=== PATIENT | female | born 1930 | race Caucasian/White ===

== ENCOUNTER 2018-02-03 15:39 | Inpatient (IN) | payer MEDICARE ==
[2018-02-03 17:02] LABS: Hemoglobin 14.8 g/dL (12.0-16.0); Mean Corpuscular Hemoglobin 28.5 pg (27.0-31.0); Mean Corpuscular Volume 81.4 fL (78.0-98.0); Platelet Count 220 thou/uL (130-400); RBC Distribution Width 13.4 % (11.5-14.5); Red Blood Cell (RBC) Count 5.18 mill/uL (4.20-5.40)
[2018-02-03 17:24] LABS: ALT (SGPT) 24 U/L (8-55); AST (SGOT) 31 U/L (5-34); Albumin 4.4 g/dL (3.4-4.8); Alkaline Phosphatase 90 U/L (40-150); Anion Gap 15 mmol/L (10-20); BUN (Urea Nitrogen) 15 mg/dL (9.8-20.1); Bilirubin, Total 0.6 mg/dL (0.2-1.2); Calc. Creatinine Clearance 0 mL/min (70-130); Calcium 9.1 mg/dL (7.8-10.44); Carbon Dioxide 22 mmol/L (23-31); Chloride 86 mmol/L (98-107); Estimated GFR-MDRD 58; Globulin 3.6 g/dL (2.4-3.5); Glucose 110 mg/dL (83-110); Potassium 4.4 mmol/L (3.5-5.1)
[2018-02-03 17:25] LABS: Band 7 % (5-11); Lymphocytes 11 % (21-51); MDiff Complete? YES; Metamyelocyte 1 % (0-0); Monocytes 15 % (0-10); Neutrophil 66 % (42-75); PLT Morphology Comment Appears Adequate; RBC Morphology Normal
[2018-02-03 17:31] LABS: Sodium 119 mmol/L (136-145)
[2018-02-03] MEDS ORDERED: Bisacodyl 5 MG TAB PO PRN (22:26)
[2018-02-03] MEDS ORDERED: Acetaminophen 325 MG TAB PO PRN (22:26)
[2018-02-03] MEDS ORDERED: Mag-Al 1200 mg/1200 mg/30 ML UDCUP PO PRN (22:26)
[2018-02-03] MEDS ORDERED: Senokot 8.6 MG TAB PO PRN (22:26)
[2018-02-03] MEDS ORDERED: hydrALAZINE 20 MG/ML VIAL SLOW IVP PRN (22:26)
[2018-02-03 23:12] LABS: Anion Gap 15 mmol/L (10-20); BUN (Urea Nitrogen) 12 mg/dL (9.8-20.1); Calc. Creatinine Clearance 45 mL/min (70-130); Calcium 8.7 mg/dL (7.8-10.44); Carbon Dioxide 20 mmol/L (23-31); Chloride 92 mmol/L (98-107); Estimated GFR-MDRD 71; Glucose 130 mg/dL (83-110); Potassium 3.6 mmol/L (3.5-5.1); Sodium 123 mmol/L (136-145)
[2018-02-04] MEDS: Sodium Chloride 0.9% 1,000 ML IV SCH ×2 (01:02→15:51)
[2018-02-04 06:05] LABS: Anion Gap 9 mmol/L (10-20); BUN (Urea Nitrogen) 10 mg/dL (9.8-20.1); Calc. Creatinine Clearance 52 mL/min (70-130); Calcium 8.5 mg/dL (7.8-10.44); Carbon Dioxide 22 mmol/L (23-31); Chloride 95 mmol/L (98-107); Estimated GFR-MDRD 83; Glucose 95 mg/dL (83-110); Potassium 3.5 mmol/L (3.5-5.1); Sodium 122 mmol/L (136-145)
[2018-02-04] MEDS ORDERED: Non-Formulary Item 1 EACH (Biotin [Biotin] 5,000 MCG) PO SCH (09:00)
[2018-02-04] MEDS: Clopidogrel Bisulfate 75 MG TAB PO SCH (09:15)
[2018-02-04] MEDS: Aspirin 81 mg Enteric Coated Tablet PO SCH (09:15)
[2018-02-04] MEDS: Metoprolol Tartrate 50 MG TAB PO SCH ×2 (09:15→15:51)
[2018-02-04] MEDS: Amlodipine 5 MG TAB PO SCH (09:15)
[2018-02-04] MEDS: Enoxaparin Sodium 30 MG/0.3 ML SYRINGE SC SCH (09:15)
[2018-02-04] MEDS: hydrALAZINE 25 MG TAB PO SCH ×2 (09:15→15:50)
[2018-02-04] MEDS: Atorvastatin Calcium 20 MG TAB PO SCH (09:15)
--- NOTE | 2018-02-04 10:30 | PDOC.EVN ---
Event Note - Event Note Event Note: h&p [id number]
[2018-02-04 10:53] LABS: Anion Gap 10 mmol/L (10-20); BUN (Urea Nitrogen) 9 mg/dL (9.8-20.1); Calc. Creatinine Clearance 45 mL/min (70-130); Calcium 8.5 mg/dL (7.8-10.44); Carbon Dioxide 23 mmol/L (23-31); Chloride 94 mmol/L (98-107); Estimated GFR-MDRD 72; Glucose 142 mg/dL (83-110); Potassium 3.4 mmol/L (3.5-5.1); Sodium 124 mmol/L (136-145)
--- NOTE | 2018-02-04 10:55 | HP ---
CHIEF COMPLAINT: Diarrhea and weakness. HISTORY OF PRESENT ILLNESS: This is an 87-year-old female with a history of breast cancer, coronary artery disease, hypertension, hyperlipidemia, and hypercholesterolemia who presents with a chief comp laint of diarrhea for the last 3 weeks and generalized weakness. The patient was also observed by a family friend to have had some dyspnea with exertion, more so than usual. The patient did go see her outpatient electrical worker and had an outpatient serological panel completed and was subsequently told to present to the emergency department. In the emergency department, the patient was found to have a sodium of 118. At the time of my evalua tion, the patient still endorses feeling generalized weakness, but otherwise feels "okay." REVIEW OF SYSTEMS: As per HPI. CONSTITUTIONAL: No significant weight gain or loss. No fevers or chills. HEENT: Denies any new headaches, lightheadedness, dizziness or vision changes. CARDIOVASCULAR: Denies any chest pain, chest pressure. Does have some shortness of breath with exer tion at baseline. A family friend feels that this is subjectively worse than typical. No palpitatio ns. RESPIRATORY: See discussion above regarding shortness of breath, particularly with exertion. Otherw ise, no cough, congestion. GASTROINTESTINAL: No nausea, no vomiting, a retained appetite. No abdominal pain. The patient has been having on and off diarrhea for the last 2-3 weeks that is watery and brown. MUSCULOSKELETAL: No new myalgias or arthralgias, just generalized fatigue. SKIN: No new rashes or lymphadenopathy. Review of systems otherwise negative. PAST MEDICAL HISTORY: 1. As per HPI, notable for congestive heart failure, unknown ejection fraction 2. Coronary artery disease. 3. Breast cancer. 4. Hypertension. 5. Hyperlipidemia. 6. Status post right hip surgery. 7. Status post mastectomy HOME MEDICATIONS: Please see EMR for full details. MEDICATIONS: Hydralazine 25 mg p.o. b.i.d., metoprolol 50 mg p.o. b.i.d., amlodipine 5 mg p.o. daily , olmesartan 20 mg p.o. b.i.d., clopidogrel 75 mg p.o. daily, Biotin 5000 mcg p.o. daily, aspirin 81 mg p.o. daily, Atorvastatin 20 mg p.o. daily. The patient notes that because her brand of valsartan underwent a recall so she was changed over to o lmesartan approximately a month ago by her electrical worker. ALLERGIES: Patient has allergy to MEPERIDINE, unknown severity of reaction. FAMILY HISTORY: The patient denies any known family history of electrolyte abnormality, renal diseas e. The patient does endorse a family history of some cardiovascular disease. SOCIAL HISTORY: The patient denies any alcohol, tobacco or illicit drug use. She is accompanied her e today by a close family friend. CODE STATUS: Her son lives out of state, however, is very involved in her care and would be designat ed as her medical decision maker, along with the family friend at bedside if the patient is unable to make her own medical decisions. At this point in time, the patient wishes to be FULL CODE. PHYSICAL EXAMINATION: GENERAL: The patient is awake, alert, appropriate, conversant, sitting in hospital bed in no acute d istress. HEENT: Slightly dry mucous membranes. Equal ocular motions are intact. Normocephalic, atraumatic. CARDIOVASCULAR: S1, S2. No murmurs, rubs or gallops. Pulses 2+ bilateral upper extremity, no pitti ng pedal edema. RESPIRATORY: Reasonable air movement. No conversational dyspnea. LUNGS: Clear to auscultation bilaterally. No wheezes, rales or rhonchi. ABDOMEN: Positive bowel sounds, soft, nontender to palpation. MUSCULOSKELETAL: Moving all 4 extremities independently and able to self-reposition in the bed witho ut difficulty or assistance. LABORATORY AND IMAGING: CBC: WBC 7.0, hemoglobin 14.8, hematocrit 42.1, platelets 220. BMP: Sodiu m 119, potassium 4.4, chloride 86, bicarbonate 22, BUN 15, creatinine 0.91, glucose 110, calcium 9.1, total bilirubin 0.6, AST 31, ALT 24, alkaline phosphatase 90. B-natriuretic peptide 398, total prot ein 8.0, albumin 4.4. ASSESSMENT AND PLAN: An 87-year-old female who presents with complaint of a low sodium and diarrhea. 1. Hyponatremia. The patient has been placed on normal saline. Suspect possibly diarrhea is the cu lprit. We will continue to closely monitor with serial BMP. I appreciate Nephrology consultation fo r aid with further management of her hyponatremia as needed. 2. Diarrhea. The patient currently is not actively having any diarrhea. We will continue to closel y monitor. If the patient has any further recurrent diarrhea, could consider stool testing. Suspect that at the very least the patient would benefit from an outpatient gastroenterology consultation. 3. Hypertension, stable. 4. Hyperlipidemia, stable. 5. Coronary artery disease, stable. 6. History of congestive heart failure with an unknown EF. At this point in time, we will still con tinue with IV fluid administration cautiously. I have discussed with the patient that olmesartan may not likely be the precipitating etiology of her hyponatremia, but we will continue to closely monito r. 7. Diet: Cardiac. 8. Activity: As tolerated. 9. Deep venous thrombosis prophylaxis with Lovenox.
--- NOTE | 2018-02-04 12:53 | CON ---
DATE OF CONSULTATION: 02/04/2018 CONSULTING PHYSICIAN: Dr. Domínguez. REASON FOR CONSULT: Hyponatremia. REASON FOR ADMISSION: . HISTORY OF PRESENT ILLNESS: This is an 87-year-old elderly white female with history of coronary art zuly disease and hyperlipidemia, who came to the hospital with above complaints and Nephrology is cons ult for hyponatremia. The patient's sodium was found to be 119 on admission and currently is 122-123 after IV fluids. Patient denies any complaints. She was having her breakfast. No chest pain or sh ortness of breath reported. PAST MEDICAL HISTORY: Positive for coronary artery disease, hyperlipidemia, hypertension. PAST SURGICAL HISTORY: Right hip surgery and mastectomy. HOME MEDICATIONS: Hydralazine, metoprolol, Plavix, amlodipine, atorvastatin. ALLERGIES: MEPERIDINE. SOCIAL HISTORY: No smoking, alcohol, or illicit drug abuse. FAMILY HISTORY: Nothing significant. REVIEW OF SYSTEMS: The following complete review of systems was negative, unless otherwise mentioned in the HPI or below: Constitutional: Weight loss or gain, ability to conduct usual activities. Sk in: Rash, itching. Eyes: Double vision, pain. ENT/Mouth: Nose bleeding, neck stiffness, pain, te nderness. Cardiovascular: Palpitations, dyspnea on exertion, orthopnea. Respiratory: Shortness of breath, wheezing, cough, hemoptysis, fever, or night sweats. Gastrointestinal: Poor appetite, abdo hailey pain, heartburn, nausea, vomiting, constipation, or diarrhea. Genitourinary: Urgency, frequen cy, dysuria, nocturia. Musculoskeletal: Pain, swelling. Neurologic/Psychiatric: Anxiety, depressi on. Allergy/Immunologic: Skin rash, bleeding tendency. PHYSICAL EXAMINATION: GENERAL: This is a thin-built female in no apparent distress. VITAL SIGNS: Temperature 98.3, pulse 95, respiratory rate 20, and blood pressure 150/68. LABORATORY DATA: Sodium is 132, potassium is 3.5, BUN is 10, creatinine 0.67. ASSESSMENT AND PLAN: 1. Hyponatremia, most likely volume depletion. We will start on IV fluids, monitor sodium closely. 2. Hyponatremia. 3. Metabolic acidosis. 4. Edema, controlled. 5. Hypertension, stable. 6. Plan is to continue IV fluids and monitor sodium closely.
[2018-02-04 17:01] LABS: Anion Gap 11 mmol/L (10-20); BUN (Urea Nitrogen) 13 mg/dL (9.8-20.1); Calc. Creatinine Clearance 48 mL/min (70-130); Carbon Dioxide 19 mmol/L (23-31); Chloride 94 mmol/L (98-107); Estimated GFR-MDRD 79; Glucose 91 mg/dL (83-110); Potassium 3.9 mmol/L (3.5-5.1); Sodium 120 mmol/L (136-145)
--- NOTE | 2018-02-04 21:27 | PDOC.PN ---
- Subjective Encounter Start Date: 02/04/18 Encounter Start Time: 18:00 Subjective: nsg notes rev, [place] ovn, eating dinner and no new c/o -: family friend at bedside, son on speakerphone - Objective Resuscitation Status: Resuscitation Status FULL:Full Resuscitation Vital Signs & Weight: Vital Signs (12 hours) Temp Pulse Pulse Pulse Resp BP BP 02/04/18 19:30 98 F 78 16 02/04/18 16:08 98.0 F 75 16 02/04/18 15:50 87 02/04/18 12:10 98.2 F 87 18 02/04/18 11:14 75 75 131/74 156/65 H BP Pulse Ox Pulse Ox Pulse Ox 02/04/18 19:30 128/61 93 L 02/04/18 16:08 138/90 97 02/04/18 15:50 02/04/18 12:10 135/61 100 02/04/18 11:14 99 90 L Weight Weight 121 lb 9.6 oz Result Diagrams: 02/03/18 16:33 02/05/18 04:48 Phys Exam - Physical Examination Constitutional: NAD seated in hospital bed HEENT: PERRLA, moist MMs Respiratory: no wheezing, no rales, no rhonchi, clear to auscultation bilateral Cardiovascular: RRR, no significant murmur, no rub Gastrointestinal: soft, non-tender, no distention, positive bowel sounds Musculoskeletal: no edema, pulses present Neurological: moves all 4 limbs Dx/Plan - Plan cont current plan of care 1. Hyponatremia. The patient has been placed on normal saline. Suspect possibly diarrhea is the culprit. We will continue to closely monitor with serial BMP. apprec nephrology c/s 2. Diarrhea. The patient currently is not actively having any diarrhea. We will continue to closely monitor. check c diff, stool cx family inquired about probiotics - ok to trial may need outpt GI eval 3. Hypertension, stable. 4. Hyperlipidemia, stable. 5. Coronary artery disease, stable. 6. History of congestive heart failure with an unknown EF. At this point in time, we will still continue with IV fluid administration cautiously. 7. Diet: Cardiac. 8. Activity: As tolerated. 9. Deep venous thrombosis prophylaxis with Lovenox. d/w pt and her family friend and son on speakerphone d/w bedside nsg Review of Systems - Medications/Allergies Allergies/Adverse Reactions: Allergies Allergy/AdvReac Type Severity Reaction Status Date / Time meperidine [From Demerol] Allergy Verified 02/03/18 20:03 Medications: Current Medications Acetaminophen (Tylenol) 650 mg PO Q4H PRN PRN Reason: Headache/Fever or Mild Pain Al Hydroxide/Mg Hydroxide (Maalox) 15 ml PO Q4H PRN PRN Reason: Heartburn or Indigestion Amlodipine Besylate (Norvasc) 5 mg PO DAILY [facility] Last Admin: 02/05/18 08:42 Dose: 5 mg Aspirin (Ecotrin) 81 mg PO DAILY [facility] Last Admin: 02/05/18 08:41 Dose: 81 mg Atorvastatin Calcium (Lipitor) 20 mg PO DAILY [facility] Last Admin: 02/05/18 08:42 Dose: 20 mg Bisacodyl (Dulcolax) 10 mg PO DAILYPRN PRN PRN Reason: Constipation Clopidogrel Bisulfate (Plavix) 75 mg PO DAILY [facility] Last Admin: 02/05/18 08:41 Dose: 75 mg Enoxaparin Sodium (Lovenox) 30 mg SC 09 [facility] Last Admin: 02/05/18 08:47 Dose: 30 mg Hydralazine HCl (Apresoline) 10 mg SLOW IVP Q4H PRN PRN Reason: Systolic BP > 180 Hydralazine HCl (Apresoline) 25 mg PO BID-[facility] Last Admin: 02/05/18 08:42 Dose: 25 mg Sodium Chloride (Normal Saline 0.9%) 1,000 mls @ 125 mls/hr IV .Q8H [facility] Metoprolol Tartrate (Lopressor) 50 mg PO BID-[facility] Last Admin: 02/05/18 08:42 Dose: 50 mg Potassium Chloride (K-Dur) 40 meq PO 0900 [facility] Stop: 02/05/18 12:00 Senna (Senokot) 2 tab PO HSPRN PRN PRN Reason: Constipation
[2018-02-04 22:36] LABS: Osmolality, Urine 347 mOsm/kg (300-900)
[2018-02-04 22:44] LABS: Anion Gap 9 mmol/L (10-20); BUN (Urea Nitrogen) 12 mg/dL (9.8-20.1); Calc. Creatinine Clearance 48 mL/min (70-130); Calcium 8.2 mg/dL (7.8-10.44); Carbon Dioxide 22 mmol/L (23-31); Chloride 96 mmol/L (98-107); Estimated GFR-MDRD 79; Potassium 3.9 mmol/L (3.5-5.1); Sodium 123 mmol/L (136-145)
[2018-02-04 22:48] LABS: Glucose 86 mg/dL (83-110)
[2018-02-04 22:50] LABS: Sodium, Urine 75 mmol/L (Not Available)
[2018-02-05] MEDS: Sodium Chloride 0.9% 1,000 ML IV SCH ×3 (04:36→18:16)
[2018-02-05 05:35] LABS: Anion Gap 10 mmol/L (10-20); BUN (Urea Nitrogen) 9 mg/dL (9.8-20.1); Calc. Creatinine Clearance 56 mL/min (70-130); Calcium 8.4 mg/dL (7.8-10.44); Carbon Dioxide 20 mmol/L (23-31); Chloride 95 mmol/L (98-107); Estimated GFR-MDRD Greater than 90; Glucose 88 mg/dL (83-110); Potassium 3.4 mmol/L (3.5-5.1); Sodium 122 mmol/L (136-145)
[2018-02-05 06:20] LABS: Thyroid Stimulating Hormone 1.12 uIU/mL (0.35-4.94)
[2018-02-05] MEDS: Clopidogrel Bisulfate 75 MG TAB PO SCH (08:41)
[2018-02-05] MEDS: Aspirin 81 mg Enteric Coated Tablet PO SCH (08:41)
[2018-02-05] MEDS: Amlodipine 5 MG TAB PO SCH (08:42)
[2018-02-05] MEDS: Atorvastatin Calcium 20 MG TAB PO SCH (08:42)
[2018-02-05] MEDS: hydrALAZINE 25 MG TAB PO SCH ×2 (08:42→17:53)
[2018-02-05] MEDS: Metoprolol Tartrate 50 MG TAB PO SCH ×2 (08:42→17:53)
[2018-02-05] MEDS: Enoxaparin Sodium 30 MG/0.3 ML SYRINGE SC SCH (08:47)
[2018-02-05] MEDS ORDERED: Potassium Chloride 20 MEQ TAB PO SCH (09:00)
--- NOTE | 2018-02-05 10:31 | PDOC.PN ---
- Subjective Encounter Start Date: 02/05/18 Encounter Start Time: 10:30 Subjective: nsg notes rev, [place] ovn, no new c/o, feels ok, family friend @ bedside -: still having "diarrhea" which is per nsg more accurately a large partially -: formed stool - not completely waterry diarrhea - Objective Resuscitation Status: Resuscitation Status FULL:Full Resuscitation Vital Signs & Weight: Vital Signs (12 hours) Temp Pulse Resp BP BP BP Pulse Ox 02/05/18 08:42 88 132/80 02/05/18 08:00 97.5 F L 88 18 132/80 92 L 02/05/18 04:00 98.3 F 92 16 172/74 H 96 Weight Weight 123 lb I&O: 02/04/18 02/05/18 02/06/18 06:59 06:59 06:59 Intake Total 900 Output Total 800 Balance 100 Result Diagrams: 02/03/18 16:33 02/05/18 09:45 Phys Exam - Physical Examination Constitutional: NAD lying in hospital bed HEENT: moist MMs eomi Respiratory: no wheezing, no rales, no rhonchi b/l LL atelectasis Cardiovascular: RRR, no significant murmur, no rub Gastrointestinal: soft, non-tender, positive bowel sounds Musculoskeletal: no edema, pulses present Neurological: moves all 4 limbs able to self reposition in bed Psychiatric: normal affect, A&O x 3 Dx/Plan - Plan 1. Hyponatremia. Initial improvement with plateauing - inc NS TSH, cortisol wnl continue to closely monitor with serial BMP. apprec nephrology c/s - d/w nephrology 2. Diarrhea. The patient currently is not actively having any diarrhea. We will continue to closely monitor. check stool wbc family inquired about probiotics - ok to trial may need outpt GI eval 3. Hypertension, labile resume home omelsartan QHS to help with BP control continue monitor, has PRN hydralazine IV 4. Hyperlipidemia, stable. 5. Coronary artery disease, stable. Hx of CHF, sees Dr. Rowan design manager with [employer] - will try to obtain records on Mon from his office regarding EF pt does not have to fluid restrict or keep track of daily weights, suspect a reasonable EF monitor respiratory status in setting of IVF admin as per above 6. History of congestive heart failure with an unknown EF. At this point in time, we will still continue with IV fluid administration cautiously. 7. Diet: Cardiac. 8. Activity: As tolerated. Needs to be OOB and ambulating as much as tolerable. Start ICS 9. Deep venous thrombosis prophylaxis with Lovenox. d/w pt and her family friend d/w bedside nsg Greater than 30 min spent coordinating care and discussing plan of care with patient at bedside Review of Systems - Medications/Allergies Allergies/Adverse Reactions: Allergies Allergy/AdvReac Type Severity Reaction Status Date / Time meperidine [From Demerol] Allergy Verified 02/03/18 20:03 Medications: Current Medications Acetaminophen (Tylenol) 650 mg PO Q4H PRN PRN Reason: Headache/Fever or Mild Pain Al Hydroxide/Mg Hydroxide (Maalox) 15 ml PO Q4H PRN PRN Reason: Heartburn or Indigestion Amlodipine Besylate (Norvasc) 5 mg PO DAILY [facility] Last Admin: 02/05/18 08:42 Dose: 5 mg Aspirin (Ecotrin) 81 mg PO DAILY [facility] Last Admin: 02/05/18 08:41 Dose: 81 mg Atorvastatin Calcium (Lipitor) 20 mg PO DAILY [facility] Last Admin: 02/05/18 08:42 Dose: 20 mg Bisacodyl (Dulcolax) 10 mg PO DAILYPRN PRN PRN Reason: Constipation Clopidogrel Bisulfate (Plavix) 75 mg PO DAILY [facility] Last Admin: 02/05/18 08:41 Dose: 75 mg Enoxaparin Sodium (Lovenox) 30 mg SC 0900 [facility] Last Admin: 02/05/18 08:47 Dose: 30 mg Hydralazine HCl (Apresoline) 10 mg SLOW IVP Q4H PRN PRN Reason: Systolic BP > 180 Hydralazine HCl (Apresoline) 25 mg PO BID-[facility] Last Admin: 02/05/18 08:42 Dose: 25 mg Sodium Chloride (Normal Saline 0.9%) 1,000 mls @ 125 mls/hr IV .Q8H [facility] Metoprolol Tartrate (Lopressor) 50 mg PO BID-[facility] Last Admin: 02/05/18 08:42 Dose: 50 mg Olmesartan (Benicar) 20 mg PO BID [facility] Potassium Chloride (K-Dur) 40 meq PO 0900 [facility] Stop: 08/11/18 12:00 Saccharomyces Boulardii (Florastor) 250 mg PO DAILY [facility] Senna (Senokot) 2 tab PO HSPRN PRN PRN Reason: Constipation
[2018-02-05 10:32] LABS: Chloride 94 mmol/L (98-107); Potassium 3.2 mmol/L (3.5-5.1); Sodium 120 mmol/L (136-145)
[2018-02-05 10:33] LABS: Calcium 8.1 mg/dL (7.8-10.44); Glucose 180 mg/dL (83-110)
[2018-02-05 10:35] LABS: Anion Gap 11 mmol/L (10-20); Carbon Dioxide 18 mmol/L (23-31)
[2018-02-05 10:37] LABS: BUN (Urea Nitrogen) 8 mg/dL (9.8-20.1); Calc. Creatinine Clearance 49 mL/min (70-130); Estimated GFR-MDRD 79
[2018-02-05] MEDS ORDERED: Saccharomyces boulardii 250 MG CAP PO SCH (11:00)
--- NOTE | 2018-02-05 13:36 | PRG ---
DATE OF SERVICE: 02/05/2018 SUBJECTIVE: Patient was seen and examined at bedside and overnight events noted. Patient denies any shortness of breath or chest pain or palpitation. No history of nausea or vomiting or diarrhea or fever or chills or cramps. OBJECTIVE: GENERAL: This is a thin-built female in no apparent distress. VITAL SIGNS: Temperature 98.3, pulse , blood pressure . HEENT: Atraumatic, normocephalic. Oral mucosa is moist. NECK: Supple. CARDIOVASCULAR: S1 and S2 heard. Rate and rhythm regular. RESPIRATORY: Clear to auscultation. GASTROINTESTINAL: Abdomen is soft. MUSCULOSKELETAL: No tenderness. No edema. DERMATOLOGIC: No skin rash. NEUROLOGIC: Alert and awake and oriented x3. No focal neurologic deficits. Moving all the extremit ies. PSYCHIATRIC: Mood and affect normal. LABORATORY DATA: Sodium is 122. ASSESSMENT AND PLAN: 1. Hyponatremia with no significant improvement on IV fluids. The patient is still having diarrhea. We will increase IV fluids. Recheck labs in the evening. 2. Hypokalemia. Replace. 3. Metabolic acidosis, stable. 4. Edema, controlled. 5. Hypertension, stable. Increase IV fluids. Replete potassium and we will follow. We will check magnesium.
[2018-02-05 16:41] LABS: Anion Gap 9 mmol/L (10-20); BUN (Urea Nitrogen) 8 mg/dL (9.8-20.1); Calc. Creatinine Clearance 54 mL/min (70-130); Carbon Dioxide 19 mmol/L (23-31); Chloride 96 mmol/L (98-107); Estimated GFR-MDRD 88; Glucose 94 mg/dL (83-110); Sodium 120 mmol/L (136-145)
[2018-02-05] MEDS ORDERED: Tolvaptan 15 MG TAB PO SCH (18:00)
[2018-02-06 05:46] LABS: Anion Gap 10 mmol/L (10-20); BUN (Urea Nitrogen) 8 mg/dL (9.8-20.1); Calc. Creatinine Clearance 45 mL/min (70-130); Calcium 8.9 mg/dL (7.8-10.44); Carbon Dioxide 24 mmol/L (23-31); Chloride 100 mmol/L (98-107); Estimated GFR-MDRD 72; Glucose 89 mg/dL (83-110); Potassium 4.1 mmol/L (3.5-5.1); Sodium 130 mmol/L (136-145)
[2018-02-06] MEDS: Saccharomyces boulardii 250 MG CAP PO SCH (08:23)
[2018-02-06] MEDS: Amlodipine 5 MG TAB PO SCH (08:23)
[2018-02-06] MEDS: Atorvastatin Calcium 20 MG TAB PO SCH (08:24)
[2018-02-06] MEDS: Aspirin 81 mg Enteric Coated Tablet PO SCH (08:25)
[2018-02-06] MEDS: Clopidogrel Bisulfate 75 MG TAB PO SCH (08:25)
[2018-02-06] MEDS: Metoprolol Tartrate 50 MG TAB PO SCH ×2 (08:25→16:57)
[2018-02-06] MEDS: hydrALAZINE 25 MG TAB PO SCH ×2 (08:26→16:57)
[2018-02-06] MEDS: Enoxaparin Sodium 30 MG/0.3 ML SYRINGE SC SCH (08:37)
--- NOTE | 2018-02-06 14:39 | PRG ---
DATE OF SERVICE: 02/06/2018 SUBJECTIVE: Patient was seen and examined at bedside and overnight events noted. Patient denies any shortness of breath or chest pain or palpitation. No history of nausea or vomitin g or diarrhea or fever or chills or cramps. OBJECTIVE: GENERAL: This is a thin built female, in no apparent distress. VITAL SIGNS: Temperature 98.7, pulse 97, respiratory rate 18, blood pressure 124/66. HEENT: Atraumatic, normocephalic. Oral mucosa is moist. NECK: Supple. CARDIOVASCULAR: S1 and S2 heard. Rate and rhythm regular. RESPIRATORY: Clear to auscultation. GASTROINTESTINAL: Abdomen is soft. MUSCULOSKELETAL: No tenderness. No edema. DERMATOLOGIC: No skin rash. NEUROLOGIC: Alert and awake and oriented x3. No focal neurologic deficits. Moving all the extremit ies. PSYCHIATRIC: Mood and affect normal. LABORATORY DATA: Sodium is 130, potassium is 4.1, BUN 8, creatinine 0.7. ASSESSMENT AND PLAN: 1. Hyponatremia seems like SIADH getting better with vaptan and give one dose of tolvaptan. We will recheck labs at 4:00 p.m. today and continue monitoring the sodium. We will recheck a.m. labs too. 2. Edema, controlled. 3. hypokalemia, replace. 4. Hypertension, stable. 5. Metabolic acidosis, stable. 6. Monitor sodium, had one dose of vaptan, limit fluid intake. We will follow.
--- NOTE | 2018-02-06 16:17 | PDOC.PN ---
- Subjective Encounter Start Date: 02/06/18 Encounter Start Time: 16:05 Subjective: f/u for hyponatremia and diarrhea. Overall Na+ level improved -: and no diarrhea. Appetite improved. More energy and feeling better. - Objective Resuscitation Status: Resuscitation Status FULL:Full Resuscitation MAR Reviewed: Yes Vital Signs & Weight: Vital Signs (12 hours) Temp Pulse Resp BP BP Pulse Ox 02/06/18 11:30 97.7 F 57 L 18 117/54 L 96 02/06/18 08:26 97 124/66 02/06/18 08:23 97 124/66 02/06/18 08:00 97.9 F 97 20 124/66 93 L Weight Weight 116 lb 4 oz I&O: 02/05/18 02/06/18 02/07/18 06:59 06:59 06:59 Intake Total 900 2650 Output Total 800 1200 Balance 100 1450 Result Diagrams: 02/03/18 16:33 02/06/18 04:58 Additional Labs: Laboratory Tests 02/05/18 02/05/18 02/05/18 04:48 04:48 04:48 Sodium 122 L Potassium 3.4 L TSH 3rd Generation 1.1200 Cortisol 11.90 02/05/18 02/05/18 09:45 16:15 Sodium 120 L 120 L Potassium 3.2 L 4.0 TSH 3rd Generation Cortisol Phys Exam - Physical Examination Constitutional: NAD HEENT: PERRLA, sclera anicteric, oral pharynx no lesions Neck: no nodes, no JVD, supple, full ROM Respiratory: no wheezing, no rales, no rhonchi, clear to auscultation bilateral S1, S2 Cardiovascular: RRR, no significant murmur, no rub, gallop Gastrointestinal: soft, non-tender, no distention, positive bowel sounds Musculoskeletal: no edema, pulses present Neurological: non-focal, normal sensation, moves all 4 limbs Psychiatric: normal affect, A&O x 3 Skin: no rash, normal turgor, cap refill <2 seconds Dx/Plan (1) Hyponatremia Code(s): E87.1 - HYPO-OSMOLALITY AND HYPONATREMIA Status: Acute Comment: Likely SIADH, improving overall, serial Na+, fluid restriction (2) Diarrhea Code(s): R19.7 - DIARRHEA, UNSPECIFIED Status: Acute Comment: Resolving, supportive mgmt (3) Hypokalemia Code(s): E87.6 - HYPOKALEMIA Status: Acute Comment: Secondary to GI loss, resolving (4) HTN (hypertension) Code(s): I10 - ESSENTIAL (PRIMARY) HYPERTENSION Status: Chronic Qualifiers: Hypertension type: essential hypertension Qualified Code(s): I10 - Essential (primary) hypertension Comment: Continue current anti-hypertensive regimen, serial monitoring - Plan PT/OT, out of bed/ambulate, DVT proph w/SCDs Stable overall -: Continue fluid restriction -: Serial Na+ monitoring -: PT for mobilization -: AM lab: BMP * Likely home in am
[2018-02-06 21:26] VITALS: TEMP 97.8
[2018-02-07 05:37] LABS: Anion Gap 13 mmol/L (10-20); BUN (Urea Nitrogen) 18 mg/dL (9.8-20.1); Calc. Creatinine Clearance 36 mL/min (70-130); Carbon Dioxide 22 mmol/L (23-31); Chloride 101 mmol/L (98-107); Estimated GFR-MDRD 59; Potassium 3.9 mmol/L (3.5-5.1); Sodium 132 mmol/L (136-145)
[2018-02-07 05:38] LABS: Glucose 89 mg/dL (83-110)
[2018-02-07] MEDS: Atorvastatin Calcium 20 MG TAB PO SCH (09:01)
[2018-02-07] MEDS: Amlodipine 5 MG TAB PO SCH (09:01)
[2018-02-07] MEDS: Metoprolol Tartrate 50 MG TAB PO SCH (09:01)
[2018-02-07] MEDS: Aspirin 81 mg Enteric Coated Tablet PO SCH (09:01)
[2018-02-07] MEDS: Saccharomyces boulardii 250 MG CAP PO SCH (09:01)
[2018-02-07] MEDS: Clopidogrel Bisulfate 75 MG TAB PO SCH (09:01)
[2018-02-07] MEDS: Enoxaparin Sodium 30 MG/0.3 ML SYRINGE SC SCH (09:02)
[2018-02-07] MEDS: hydrALAZINE 25 MG TAB PO SCH (09:03)
[2018-02-07 11:12] VITALS: BP 155/80
--- NOTE | 2018-02-07 11:20 | DIS ---
DATE OF ADMISSION: 02/03/2018 DATE OF DISCHARGE: 02/07/2018 DISCHARGE DIAGNOSES: 1. Hyponatremia secondary to syndrome of inappropriate antidiuretic hormone, resolving. 2. Diarrhea, resolved. 3. Hypokalemia secondary to diarrhea, resolved. 4. Hypertension, stable. CONSULTATIONS: Dr. Bryan with Nephrology Service. PERTINENT LABORATORY AND X-RAY FINDINGS: Sodium ranged between 119-132. Potassium ranged between 3. 2-4.4. TSH 1.12. Serum cortisol level 11.9. BNP 398. CBC within normal limits. HOSPITAL COURSE: The patient was initially admitted after presenting with diarrhea and generalized w eakness as well as dyspnea on exertion. The patient underwent general evaluation including metabolic evaluation with initial sodium level noted at 119. The patient was initially placed on IV normal sa line with serial sodium monitoring. Consultation was obtained by the Nephrology Service with recomme ndations for eventual fluid restriction with overall slow improvement in sodium trend. The patient w as also noted with diarrhea at the time of admission; however, this had resolved by the date of disch arge. The patient did receive a dose of Samsca with overall improvement in sodium values with near n ormalization of the trend by the time of discharge. The patient overall remained clinically stable t hroughout the hospital course, tolerating regular oral intake. Vital signs remained stable and the p atient was noted afebrile throughout the hospital course. I have examined the patient at the time of discharge and discussed followup instructions, at which point the patient verbalizes understanding a nd agreement. The patient is overall clinically stable and ready for discharge on 02/07/2018. DISCHARGE MEDICATIONS: 1. Amlodipine 5 mg 1 tab p.o. daily. 2. Enteric coated aspirin 81 mg 1 tab p.o. daily. 3. Lipitor 20 mg p.o. daily. 4. Biotin 5000 mcg p.o. daily. 5. Plavix 75 mg p.o. daily. 6. Hydralazine 25 mg p.o. b.i.d. 7. Metoprolol tartrate 50 mg 1 tab p.o. b.i.d. 8. Olmesartan 20 mg p.o. b.i.d. FOLLOWUP: The patient will follow up with her primary care provider, Dr. John Bosch within 7 da ys of discharge. CONDITION ON DISCHARGE: Stable. ACTIVITY: Ad michael. DIET: Heart healthy. CODE STATUS: Full. DISPOSITION: Home, 02/07/2018. Total time preparing and coordinating discharge, 34 minutes.
== END 2018-02-07 14:58 | disposition home or self-care (01) | DRG 644 ==
LOC: ERS 15:39 → 2NO 19:26 → T4-A 02-05 07:31
PROVIDERS: ADMIT Internal Medicine; ATTEND Internal Medicine
DX: E22.2 Syndrome of inappropriate secretion of antidiuretic hormone (principal); E87.2 Acidosis; R19.7 Diarrhea, unspecified; E87.6 Hypokalemia; I25.10 Atherosclerotic heart disease of native coronary artery without angina pectoris; I50.9 Heart failure, unspecified; I11.0 Hypertensive heart disease with heart failure
CPT/HCPCS: 36415; 80048; 80053; 82533; 83735; 83880; 83930; 83935; 84300; 84443; 85025; 93005; 96360; G8978-GP-CI; G8979-GP-CI; G8980-GP-CI; J1650

== ENCOUNTER 2018-02-10 16:56 | Inpatient (IN) | payer MEDICARE ==
[~2018-02-10 16:56] MED LIST: Iopamidol 370 76% 100 ML VIAL ONE
--- NOTE | 2018-02-10 17:44 | RAD ---
FRONTAL VIEW CHEST: 02/10/18 COMPARISON: None. INDICATION: Weakness, short of breath and cough FINDINGS: There is hyperinflation of the lungs with interstitial prominence bilaterally. Hazy alveolar opacity are also seen. There is a right pleural effusion, small in volume. Biapical pleural irregularity and thickening present. There is vascular calcification and osseous degenerative change. IMPRESSION: 1. Right pleural effusion. 2. Diffuse interstitial prominence could relate to edema versus pneumonitis. 3. COPD. POS: [facility]
[2018-02-10 18:11] LABS: #Lymphocytes 0.9 thou/uL (1.20-3.40); #Monocytes 0.8 thou/uL (0.11-0.59); #Neutrophils 5.5 thou/uL (1.40-6.50); %Eosinophils 0.6 % (0.0-10.0); %Lymphocytes 12.5 % (21.0-51.0); %Monocytes 10.8 % (0.0-10.0); %Neutrophils 76.1 % (42.0-75.0); Mean Corpuscular HGB CONC 35.4 g/dL (32.0-36.0); Mean Corpuscular Hemoglobin 28.4 pg (27.0-31.0); Mean Corpuscular Volume 80.3 fL (78.0-98.0); Mean Platelet Volume 6.7 fL (7.4-10.4); Platelet Count 171 thou/uL (130-400); RBC Distribution Width 13.3 % (11.5-14.5); Red Blood Cell (RBC) Count 4.92 mill/uL (4.20-5.40); White Blood Cell (WBC) Count 7.2 thou/uL (4.8-10.8)
[2018-02-10 18:34] LABS: ALT (SGPT) 29 U/L (8-55); AST (SGOT) 36 U/L (5-34); Albumin 4.2 g/dL (3.4-4.8); Alkaline Phosphatase 78 U/L (40-150); Anion Gap 14 mmol/L (10-20); BUN (Urea Nitrogen) 9 mg/dL (9.8-20.1); Bilirubin, Total 0.9 mg/dL (0.2-1.2); CK (CPK) 107 U/L (29-168); Calc. Creatinine Clearance 0 mL/min (70-130); Calcium 8.8 mg/dL (7.8-10.44); Carbon Dioxide 20 mmol/L (23-31); Chloride 85 mmol/L (98-107); Estimated GFR-MDRD 78; Globulin 3.4 g/dL (2.4-3.5); Glucose 117 mg/dL (83-110); Potassium 3.9 mmol/L (3.5-5.1); Protein, Total 7.6 g/dL (6.0-8.3)
[2018-02-10 18:38] LABS: CKMB 3.4 ng/mL (0-6.6); Troponin I Less than 0.010 ng/mL (< 0.028)
[2018-02-10 18:42] LABS: Sodium 115 mmol/L (136-145)
--- NOTE | 2018-02-10 20:19 | CT ---
CTA CHEST WITH CONTRAST WITH 3D VOLUME RENDERIN02/10/18 CLINICAL HISTORY: Dyspnea, weakness, cough. FINDINGS: There is no evidence of a significant filling defect of the pulmonary arteries to indicate acute pulm onary thromboembolism. There is diffuse vascular disease of the imaged aorta. Moderate right pleural effusion is present. There is adjacent consolidation of the right lung. Multifocal lucency of each soo ng is consistent with pulmonary emphysema. There is abnormal multifocal lobular soft tissue density o f the mediastinum and insinuating into the right hilum as well as insinuating along bronchovascular b undle of the right lung, notably right lower lobe. Additional mildly enlarged mediastinal lymph nodes are present. There are partially imaged hypodense masses of the visualized liver. Fullness of the le ft adrenal gland is noted. Granulomatous calcification is seen within the spleen. There is diffuse os seous degenerative change. There is a small hiatal hernia. IMPRESSION: 1. No evidence of an acute pulmonary embolus. 2. 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 This could relate to a primary mediastinal malignancy or alternatively this could relate to confluent metastatic adenopathy. 3. Moderate right pleural effusion which could either reflect a sympathic effusion or alternativ vladimir malignant, given the concomitant findings. 4. There is extensive pulmonary emphysema. 5. Hepatic metastatic disease and possible involvement of the left adrenal gland. POS: [facility]
[2018-02-10 20:58] LABS: Bilirubin Negative (Negative); Blood, Urine Negative (Negative); Clarity CLEAR (Clear); Glucose, Urine (Dipstick) Negative (Negative); Leukocyte Negative (Negative); Nitrite Negative (Negative); Protein, Urine (Dipstick) Negative (Neg-Trace); Specific Gravity, Urine 1.015 (1.002-1.036); pH, Urine 7.5 (5.0-9.0)
[2018-02-10] MEDS ORDERED: Piperacillin/Tazobactam 4.5 GM VIAL ONE (21:17)
[2018-02-10] MEDS ORDERED: Ondansetron HCl/PF 4 MG/2 ML Vial IVP PRN (21:41)
[2018-02-10] MEDS ORDERED: Ondansetron ODT 4 MG TAB SL PRN (21:41)
[2018-02-10] MEDS ORDERED: Acetaminophen 325 MG TAB PO PRN (21:41)
[2018-02-10] MEDS ORDERED: Piperacillin/Tazobactam 4.5 GM in Sodium Chloride 0.9% 100 ML IVPB SCH (21:45)
[2018-02-10] MEDS ORDERED: hydrALAZINE 20 MG/ML VIAL SLOW IVP PRN (22:24)
[2018-02-10] MEDS ORDERED: Vancomycin HCl 1 GM in Premix Bag 1 BAG IVPB SCH (22:30)
[2018-02-10 22:56] LABS: Osmolality, Serum 240 mOsm/kg (280-295)
[2018-02-10 23:52] LABS: Potassium, Urine 21.3 mmol/L
[2018-02-11] MEDS ORDERED: Lorazepam 2 MG/ML VIAL ONE (00:43)
[2018-02-11] MEDS ORDERED: Lorazepam 2 MG/ML VIAL SLOW IVP SCH (01:00)
[2018-02-11] MEDS ORDERED: Lorazepam 2 MG/ML VIAL SLOW IVP PRN (02:04)
[2018-02-11] MEDS ORDERED: Cyclobenzaprine 10 MG TAB PO PRN (02:04)
[2018-02-11] MEDS ORDERED: Furosemide 40 MG/4 ML VIAL SLOW IVP SCH (02:15)
[2018-02-11 02:36] LABS: pH, Arterial 7.44 (7.35-7.45)
[2018-02-11 02:37] LABS: Actual Bicarbonate (HCO3a) 19.6 mEq/L (22-28); Base Excess (BEa) -3.2 mEq/L (-2.0 to +3.0); CO2 Tension 29.5 mmHg (35.0-45.0); Hemoglobin (Hb) 14.5 g/dL (12.0-16.0); O2 Tension (PaO2) 119.7 mmHg (> 60.0)
[2018-02-11 02:38] LABS: Analyzer IN Cardio ER; Calcium, Ionized 1.1 mmol/L (1.12-1.30); Puncture Site RRA
[2018-02-11 02:39] LABS: ALV-art Gradient 70.305 (0-20)
[2018-02-11 02:46] LABS: Troponin I Less than 0.010 ng/mL (< 0.028)
[2018-02-11] MEDS ORDERED: Azithromycin 500 MG in Sodium Chloride 0.9% 250 ML 250 ML IVPB SCH (05:00)
[2018-02-11 06:16] LABS: #Lymphocytes 0.7 thou/uL (1.20-3.40); #Monocytes 1.1 thou/uL (0.11-0.59); #Neutrophils 6.7 thou/uL (1.40-6.50); %Basophils 0.3 % (0.0-1.0); %Eosinophils 0.2 % (0.0-10.0); %Lymphocytes 8.1 % (21.0-51.0); %Monocytes 13.1 % (0.0-10.0); %Neutrophils 78.2 % (42.0-75.0); Hemoglobin 12.7 g/dL (12.0-16.0); Mean Corpuscular HGB CONC 34.8 g/dL (32.0-36.0); Mean Corpuscular Hemoglobin 28.2 pg (27.0-31.0); Mean Corpuscular Volume 81.1 fL (78.0-98.0); Mean Platelet Volume 7.2 fL (7.4-10.4); Platelet Count 143 thou/uL (130-400); RBC Distribution Width 13.4 % (11.5-14.5); Red Blood Cell (RBC) Count 4.51 mill/uL (4.20-5.40); White Blood Cell (WBC) Count 8.5 thou/uL (4.8-10.8)
[2018-02-11 06:18] LABS: Anion Gap 11 mmol/L (10-20); BUN (Urea Nitrogen) 9 mg/dL (9.8-20.1); Calc. Creatinine Clearance 45 mL/min (70-130); Calcium 8.2 mg/dL (7.8-10.44); Carbon Dioxide 21 mmol/L (23-31); Chloride 88 mmol/L (98-107); Estimated GFR-MDRD 74; Glucose 103 mg/dL (83-110); Potassium 3.3 mmol/L (3.5-5.1)
[2018-02-11 06:22] LABS: Sodium 117 mmol/L (136-145)
--- NOTE | 2018-02-11 07:53 | RAD ---
PORTABLE CHEST 1 VIEW: DATE: 02/11/18. TIME: 2:21 a.m. HISTORY: Difficulty breathing. FINDINGS: Comparison is made with the exam of previous day. Changes of COPD are again seen. The heart size is normal. There is pulmonary vascular congestion with small right pleural effusion. POS: [facility]
[2018-02-11] MEDS: hydrALAZINE 25 MG TAB PO SCH ×3 (08:59→16:01)
[2018-02-11] MEDS: Aspirin 81 mg Enteric Coated Tablet PO SCH ×2 (08:59→10:01)
[2018-02-11] MEDS ORDERED: Biotin [Biotin] 5,000 MCG PO SCH (09:00)
[2018-02-11] MEDS ORDERED: Prevnar 13-Val Conj/PF 0.5 ML SYRINGE IM ONE (09:00)
[2018-02-11] MEDS ORDERED: Enoxaparin Sodium 40 MG/0.4 ML SYRINGE SC SCH (09:00)
[2018-02-11] MEDS: Clopidogrel Bisulfate 75 MG TAB PO SCH ×2 (09:02→10:01)
[2018-02-11] MEDS: Amlodipine 5 MG TAB PO SCH (09:02)
[2018-02-11] MEDS: Atorvastatin Calcium 20 MG TAB PO SCH ×2 (09:02→10:01)
[2018-02-11] MEDS: Metoprolol Tartrate 50 MG TAB PO SCH ×3 (09:02→16:01)
[2018-02-11 09:30] LABS: Magnesium 1.6 mg/dL (1.6-2.6)
[2018-02-11] MEDS ORDERED: Conivaptan 20 MG in Premix Bag 1 BAG IVPB SCH (09:30)
[2018-02-11 09:33] LABS: Anion Gap 10 mmol/L (10-20); BUN (Urea Nitrogen) 8 mg/dL (9.8-20.1); Calc. Creatinine Clearance 45 mL/min (70-130); Calcium 8.1 mg/dL (7.8-10.44); Carbon Dioxide 22 mmol/L (23-31); Chloride 89 mmol/L (98-107); Estimated GFR-MDRD 74; Glucose 100 mg/dL (83-110); Potassium 3.3 mmol/L (3.5-5.1)
[2018-02-11 09:34] LABS: Phosphorus 1.7 mg/dL (2.3-4.7)
[2018-02-11 09:36] LABS: Sodium 118 mmol/L (136-145)
[2018-02-11] MEDS ORDERED: hydrALAZINE 20 MG/ML VIAL SLOW IVP PRN (09:47)
[2018-02-11] MEDS ORDERED: Aspirin 300 MG Suppository PR SCH (10:00)
[2018-02-11] MEDS ORDERED: Potassium Phosphate 15 MMOL in Sodium Chloride 0.9% 250 ML 250 ML IVPB SCH ×2 (10:30→14:00)
[2018-02-11] MEDS ORDERED: Heparin 5,000 UNITS/ML VIAL SC SCH (10:30)
[2018-02-11 10:57] LABS: Sodium 117 mmol/L (136-145)
[2018-02-11] MEDS ORDERED: ABX IVPB PRN (11:09)
[2018-02-11] MEDS ORDERED: Piperacillin/Tazobactam 3.375 GM in Sodium Chloride 0.9% 100 ML IVPB SCH (12:00)
[2018-02-11] MEDS ORDERED: Potassium Chloride 20 MEQ TAB PO SCH (14:00)
[2018-02-11] MEDS ORDERED: Magnesium Sulfate 2 GM in Sodium Chloride 0.9% 100 ML IVPB SCH (14:00)
--- NOTE | 2018-02-11 14:02 | HP ---
TIME OF EVALUATION: The patient was seen at 08:50 p.m. PRIMARY CARE PHYSICIAN: John Bosch DO CODE STATUS: DNR/DNI. Discussed with the patient and power of employee benefits attorney, patient's grandson Mr. Thakkar . CHIEF COMPLAINT: Shortness of breath. HISTORY OF PRESENT ILLNESS: This is an 87-year-old female patient with past medical history of breas t cancer in remission for a few years. The patient also has a history of hyponatremia, she was hospi talized and discharged last Wednesday that time diagnosis was hyponatremia secondary to diarrhea. Patie nt came back again, complaining of nausea, shortness of breath, no clear triggers, no alleviating fac tors. Symptoms were severe. REVIEW OF SYSTEMS: Constitutional: No fever, no chills, generalized weakness. Respiratory: No cou gh, sputum production. The patient has shortness of breath. Gastrointestinal: The patient has naus ea. No vomiting, no diarrhea, or abdominal pain. Central Nervous Systems: No dizziness, headache, or feeling lightheaded. Genitourinary: No burning on urination. Extremities: No leg swelling. Al l other systems were reviewed and were negative except for the findings mentioned above. PAST MEDICAL HISTORY: The patient has history of brain cancer, hyperlipidemia, high cholesterol, hyp ertension, DVT. PAST SURGICAL HISTORY: Right mastectomy. PSYCHIATRIC HISTORY: No previous psychiatric history. SOCIAL HISTORY: No alcohol, no drugs. No smoking history. FAMILY HISTORY: Reviewed and noncontributory for current presentation. KNOWN ALLERGIES: DEMEROL. REPORTED MEDICATIONS: Hydralazine, metoprolol, clopidogrel, amlodipine, atorvastatin. PHYSICAL EXAMINATION: VITAL SIGNS: On presentation, blood pressure 180/83 with heart rate 76, respiratory rate was 26 and was unlabored, temperature 97.5, pain was 0, oxygen saturation 96% on 3 liters of oxygen. GENERAL APPEARANCE: Patient is alert, oriented, occasionally disoriented and confused, in mild distr ess due to respiratory distress. HEENT: Eyes: Normal conjunctivae. Moist oral mucosa. Anicteric. NECK: No JVD. RESPIRATORY: Bilateral air entry. No rales, no wheezing. Symmetric expansion. CARDIOVASCULAR: The patient has been tachycardic, normal rhythm. No murmurs, no gallop. EXTREMITIES: No edema. ABDOMEN: Soft, normal bowel sounds. MUSCULOSKELETAL: Baseline range of motion and strength. No tenderness. Peripheral pulses are prese nt. Capillary refill seems to be intact. SKIN: Warm and intact. No pallor, no rash, no redness. NEUROLOGIC: Baseline sensorium except for changes in patient's mini mental status. No evidence of a ny new focal weakness. Baseline speech. Cranial nerve seems to be intact. PSYCHIATRIC: The patient is in good mood, anxious. LABORATORY AND DIAGNOSTIC DATA: EKG was Reviewed. Normal sinus rhythm with left atrial enlargement. Ventricular rate 76, PA 146, QRS 88, QT corrected 461. Chest x-ray showed right-sided pneumonia. CT angio was reviewed. The patient has no evidence of acute pulmonary embolus. Findings most consis tent with confluent soft tissue mass related to malignancy of the mediastinum and right ilium with ad ditional enlarged mediastinal lymph nodes, this could relate to primary mediastinal malignancy. Alte rnatively, this could relate to confirm metastatic adenopathy. Moderate right pleural effusion which could be either reflected sympathetic effusion or alternative malignant. Given the concomitant find ings, there is extensive pulmonary emphysema, hepatic metastatic disease and possible involvement of the left adrenal gland. The labs were reviewed. The patient has white count 7.2, hemoglobin 14, stefan telet count 171,000. Blood gas was done. The patient has pH 7.44, pCO2 of 29 with pO2 119. Sodium was done, it was 115, potassium 3.9, chloride 85, carbon dioxide 20, anion gap 14, BUN 9, creatinine 0.71, glucose 117. Serum osmolality 240. Beta-natriuretic peptide 357. ASSESSMENT AND PLAN: The patient will be placed in the hospital for the following medical problems: 1. Severe hyponatremia. 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 We will monitor sodium. We will consult Nephrology for assistance with this case. The patie nt does not have any acute severe neurological symptoms. No seizures. 2. Possible right lower lobe pneumonia, seen on the chest x-ray, will be also worsened by the fact t hat the patient has underlying cancer. Place the patient on antibiotics. We will adjust treatment a s per culture results. 3. Underlying possible metastatic cancer, possible primary is breast since the patient has breast ca ncer in the past. Patient has declined previous surgeries and she is not willing to have chemotherap ies. The patient is agreeable with power of employee benefits attorney to receive a medical treatment except for resus citation or intubation. 4. Hyperglycemia with a glucose of 138, likely secondary to acute physical distress. No history of diabetes reported. We will monitor. Adjust as needed. 5. Uncontrolled hypertension, likely associated to acute physical distress and respiratory distress. We will treat underlying condition. We will reconcile home meds. May need IV p.r.n. medication fo r optimal control. 6. Hyperlipidemia. Low-cholesterol diet is advised. 7. Acute respiratory failure. The patient gets anxious with labored breathing, however, sustaining the vital signs. Her main concern was the patient might get continuously tired. Now we will place t he patient in IMCU. We have placed the patient on BiPAP. We have given updates to grandson on the p erlinda. As of now, the patient remains DNR/DNI. 8. Deep venous thrombosis prophylaxis.
--- NOTE | 2018-02-11 15:09 | CON ---
DATE OF CONSULTATION: 02/11/2018 SERVICE: Pulmonary Medicine. REASON FOR CONSULT: Respiratory failure. HISTORY OF PRESENT ILLNESS: The patient is a very pleasant 87-year-old white female, with past medical history significant for heart disease, who presents to the hospital with onset of shortness of breath. She was actually here from 02/04/2018 until 02/07/2018. She was discharged with a diagnosis of hyponatremia secondary to SIADH and diarrhea that had resolved. She went back to live with her friends, who were previously taking care of her. They subsequently brought her back to the hospital, because of some shortness of breath. She was placed on the floor and started on broad-spectrum antibiotics. Ultimately, she developed increasing respiratory failure and got a dose of Ativan for agitation. She became increasingly somnolent. She was rapidly down to the IMCU and placed on noninvasive ventilation. She was given a dose of Lasix, and overnight, her respiratory issue and mentation both improved dramatically. She has been off of BiPAP for greater than 6 hours now and has absolutely no shortness of breath. She denies any chest pain, nausea, vomiting , fevers, or chills. Her sodium remains low. Conivaptan has been initiated in order to improve that sodium level. Otherwise, there has been no interval change to her condition. She specifically denies having fevers, cough, purulent sputum production, nausea, vomiting, or diarrhea. PAST MEDICAL HISTORY: 1. Coronary artery disease. 2. Congestive heart failure. 3. Breast cancer. 4. Hypertension. 5. Dyslipidemia. PAST SURGICAL HISTORY: 1. Mastectomy. 2. Right hip surgery. ALLERGIES: MEPERIDINE. MEDICATIONS: List of her inpatient medications were reviewed and heavily modified. FAMILY HISTORY: Noncontributory. SOCIAL HISTORY: She has no alcohol, tobacco, or illicit drug use. She denies any exposure to chemicals, dust, asbestos, or tuberculosis. Now, her social situation is a little tenuous. She has been relying on friends to take care of her. Ultimately, these friends are not going to be able to continue taking care of her moving forward, as she is having increasing requirements for care. Her grandson is her medical power of patent prosecution attorney and lives in [place]. REVIEW OF SYSTEMS: General, head, ears, eyes, nose, throat, cardiovascular, respiratory, GI, , musculoskeletal, neurologic, and skin is negative except as mentioned in the HPI. PHYSICAL EXAMINATION: VITAL SIGNS: Afebrile, pulse 100, blood pressure 117/53, respirations 20, saturation 94% on 3 liters nasal cannula. GENERAL: The patient is awake, alert, in no apparent distress. LUNGS: Excellent air entry. There is no prolonged expiratory phase, wheezing, or rhonchi. Dependent crackles are present throughout bilateral lung [place]. HEART: Normal rate, regular. ABDOMEN: Soft, nontender, nondistended. Bowel sounds are positive. MUSCULOSKELETAL: No cyanosis or clubbing. There is no pitting in the bilateral lower extremities. NEUROLOGIC: Grossly nonfocal. LABORATORY DATA: WBC is completely unremarkable, hemoglobin 12.7, platelets 143 ,000. PH 7.44, pCO2 of 29, pO2 of 119. Sodium 118, potassium 3.3, creatinine 0.74. Magnesium and phosphorus are both low. Urinalysis is unremarkable. Urine creatinine is less than 20, urine potassium 21, and urine sodium 63. Blood cultures x2 are unremarkable. IMAGING: Chest x-ray demonstrates right-sided pleural effusion, pulmonary vascular congestion is identified. CT of the chest demonstrates emphysematous lung changes, which are quite mild with superimposed pulmonary edema/ground- glass opacifications. Interstitial fullness is identified. There is a small right-sided pleural effusion. There is a soft tissue density in the right hilum. It seems to spread in linear fashion with the bronchovascular bundles. ASSESSMENT: 1. Acute hypoxic respiratory failure. 2. Acute on chronic heart failure. 3. Hyponatremia. 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 DISCUSSION AND PLAN: Her oxygen saturations have improved dramatically with decreasing O2. We are going to discontinue the BiPAP. I am going to discontinue all antibiotics, as I see no evidence of an infiltrate. Additionally, she got significantly better with Lasix and time. I will continue to diurese her on a once daily basis. We are going to get an echocardiogram, so that we have baseline heart function on her. Pulmonary Critical Care will continue to follow along and she will remain in the IMCU until her sodium is above 120. We will repeat a chest x-ray in 2 days. If the effusion persists, thoracentesis will be considered. Given the patient's advanced age, debility, and a declining functional status, she would not be making a good candidate for any type of procedure in order to identify what the soft tissue density is. It is not behaving as a horrendous malignancy, as it seems to be respecting its boundaries. This will be investigated in the outpatient setting if functional status merits. 70 minutes have been devoted to this patient in various activities. I personally reviewed all imaging studies and laboratory data noted within this document. For fifty percent of this time, I was interacting with the patient at the bedside or coordinating care with the care team. For the remainder of the time I was immediately available to the patient in the hospital unit. NOHEMI
[2018-02-11 15:50] LABS: Sodium 118 mmol/L (136-145)
--- NOTE | 2018-02-11 18:58 | CON ---
DATE OF CONSULTATION: 02/11/2018 CONSULTING PHYSICIAN: Mark Faria MD REQUESTING PHYSICIAN: Dr. Sepulveda. REASON FOR CONSULTATION: Hyponatremia. IMPRESSION: 1. Hyponatremia. This is likely syndrome of inappropriate antidiuretic hormone secretion in the con text of possible lung malignancy. 2. Possible lung malignancy. PLAN: 1. The patient to be initiated on Vaprisol with a very close monitoring of the sodium change. 2. Further management to be dependent on the clinical course. HISTORY OF PRESENT ILLNESS: An 87-year-old female patient who was brought in because of respiratory failure, noted with possible lung mass and severe hyponatremia with sodium of 116. these findi ngs, Renal has been consulted. I could not get much of any history from this patient, as the patient was on BiPAP. PAST MEDICAL HISTORY: Significant for coronary artery disease, congestive heart failure, breast canc er, hypertension and dyslipidemia. ALLERGIES: MEPERIDINE. MEDICATIONS: Reviewed and as documented in the body of the history. FAMILY HISTORY: Not significantly related to the presenting illness. SOCIAL HISTORY: No alcohol, no tobacco, no illicit drug use. PHYSICAL EXAMINATION: GENERAL: The patient was found to be in respiratory failure with BiPAP in place, noted with the foll owing vital signs. VITAL SIGNS: Afebrile, temperature 99.3, pulse 105, respiratory rate of 18, O2 sat of 96%, blood pre ssure 132/57. HEENT: Unremarkable. CARDIOVASCULAR SYSTEM: First and second sounds were heard. RESPIRATORY SYSTEM: Revealed a lot of transmitted sounds. DIGESTIVE SYSTEM: Revealed a benign abdomen. EXTREMITIES: No peripheral edema. No lymphadenopathy. SUMMARY: An 87-year-old lady who presented here with respiratory failure and now noted with severe h yponatremia. Thank you for this consultation. We will follow with you.
[2018-02-11] MEDS: Heparin 5,000 UNITS/ML VIAL SC SCH (20:46)
--- NOTE | 2018-02-11 20:48 | PDOC.PN ---
- Subjective Encounter Start Date: 02/11/18 Encounter Start Time: 15:30 Patient seen and examined for Encephalopathy/Resp failure. No new complaints. NO N/V/focal deficits. Off NIPPV. Overnight events noted - Objective Resuscitation Status: Resuscitation Status DNR:Do Not Resuscitate MAR Reviewed: Yes Vital Signs & Weight: Vital Signs (12 hours) Temp Pulse Resp BP BP BP BP 02/11/18 16:01 105 H 126/52 L 02/11/18 15:27 99.3 F 105 H 18 133/57 L 02/11/18 15:02 133/57 L 124/51 L 02/11/18 12:00 02/11/18 11:05 98.0 F 100 20 117/53 L 02/11/18 09:59 113 H 123/52 L 02/11/18 09:02 113 H 123/52 L Pulse Ox Pulse Ox 02/11/18 16:01 02/11/18 15:27 96 02/11/18 15:02 92 L 02/11/18 12:00 93 L 02/11/18 11:05 94 L 02/11/18 09:59 02/11/18 09:02 Weight Admit Weight 118 lb 12.8 oz Weight 118 lb 12.8 oz I&O: 02/10/18 02/11/18 02/12/18 06:59 06:59 06:59 Intake Total 250 850 Output Total 900 450 Balance -650 400 Result Diagrams: 02/11/18 05:41 02/12/18 03:44 Additional Labs: Accuchecks 02/11/18 02/11/18 02:16 00:34 POC Glucose 138 H 133 H Phys Exam - Physical Examination Constitutional: NAD Neck: no JVD Respiratory: no wheezing, no rhonchi Cardiovascular: RRR, no rub Gastrointestinal: soft, non-tender, positive bowel sounds Musculoskeletal: no edema Neurological: non-focal, moves all 4 limbs Psychiatric: normal affect, A&O x 3 Dx/Plan - Plan DVT proph w/heparin, DVT proph w/SCDs IMPRESSION: 1. Toxic Metabolic Encephalopathy 2. SIADH 3. Hypokalemia/Hypophosphatemia 4. Acute hypoxic resp failure due to Acute on chronic diastolic HF - off NIPPV 5. CAD/PAD - on ASA/Plavix 6. Lung mass 7. HTN/HLD/h/o IVC filter PLAN: Cont fluid rest Cont Vaprisol Monitor sodium Q4 AM labs Cont supportive care Cont DVT/GI prophylaxis Cont PT Cont ASA/Plavix Replace Potassium and Phosphorus Review of Systems - Review of Systems Respiratory: negative: Cough, Dry, Shortness of Breath, Hemoptysis, SOB with Excertion, Pleuritic Pain, Sputum, Wheezing Cardiovascular: negative: chest pain, palpitations, orthopnea, paroxysmal nocturnal dyspnea, edema, light headedness, other - Medications/Allergies Allergies/Adverse Reactions: Allergies Allergy/AdvReac Type Severity Reaction Status Date / Time meperidine [From Demerol] Allergy Verified 02/10/18 21:49 Medications: Current Medications Amlodipine Besylate (Norvasc) 5 mg PO DAILY [facility] Last Admin: 02/11/18 09:02 Dose: 5 mg Aspirin (Ecotrin) 81 mg PO DAILY [facility] Last Admin: 02/11/18 10:01 Dose: Not Given Atorvastatin Calcium (Lipitor) 20 mg PO DAILY [facility] Last Admin: 02/11/18 10:01 Dose: Not Given Clopidogrel Bisulfate (Plavix) 75 mg PO DAILY [facility] Last Admin: 02/11/18 10:01 Dose: Not Given Cyclobenzaprine HCl (Flexeril) 5 mg PO TIDPRN PRN PRN Reason: Muscle Spasm Furosemide (Lasix) 40 mg SLOW IVP 0600 [facility] Heparin Sodium (Porcine) (Heparin) 5,000 units SC BID [facility] Last Admin: 02/11/18 16:01 Dose: 25 mg Hydralazine HCl (Apresoline) 10 mg SLOW IVP Q4H PRN PRN Reason: SBP Greater Than 180 Conivaptan HCl 20 mg/ Device 100 mls @ 4.16 mls/hr IVPB INF [facility] Metoprolol Tartrate ([facility]) [facility] Last Admin: 02/11/18 16:01 Dose: 50 mg Miscellaneous Medication (Pharmacy To Dose) 1 each IVPB PRN PRN PRN Reason: Pharmacy to dose Olmesartan (Benicar) 20 mg PO BID [facility] Last Admin: 02/11/18 09:59 Dose: Not Given
[2018-02-11 21:28] LABS: Sodium 119 mmol/L (136-145)
[2018-02-11] MEDS ORDERED: Vancomycin HCl 750 MG in Sodium Chloride 0.9% 250 ML 250 ML IVPB SCH (22:00)
[2018-02-12 04:51] LABS: Anion Gap 12 mmol/L (10-20); BUN (Urea Nitrogen) 11 mg/dL (9.8-20.1); Calc. Creatinine Clearance 46 mL/min (70-130); Calcium 8.3 mg/dL (7.8-10.44); Carbon Dioxide 18 mmol/L (23-31); Chloride 93 mmol/L (98-107); Estimated GFR-MDRD 76; Glucose 83 mg/dL (83-110); Magnesium 2.4 mg/dL (1.6-2.6); Potassium 4.5 mmol/L (3.5-5.1)
[2018-02-12 04:59] LABS: Phosphorus 1.8 mg/dL (2.3-4.7); Sodium 118 mmol/L (136-145)
[2018-02-12] MEDS ORDERED: Sodium Phosphate 15 MMOL in Sodium Chloride 0.9% 250 ML 250 ML IVPB SCH (05:30)
[2018-02-12] MEDS ORDERED: Potassium Phosphate 15 MMOL in Sodium Chloride 0.9% 250 ML 250 ML IVPB SCH (05:30)
[2018-02-12] MEDS ORDERED: Furosemide 40 MG/4 ML VIAL SLOW IVP SCH (06:00)
[2018-02-12] MEDS: Conivaptan 20 MG in Premix Bag 1 BAG IVPB SCH (06:07)
[2018-02-12] MEDS: Metoprolol Tartrate 50 MG TAB PO SCH ×2 (08:58→18:07)
[2018-02-12] MEDS: Atorvastatin Calcium 20 MG TAB PO SCH (08:58)
[2018-02-12] MEDS: Clopidogrel Bisulfate 75 MG TAB PO SCH (08:58)
[2018-02-12] MEDS: Amlodipine 5 MG TAB PO SCH (08:58)
[2018-02-12] MEDS: Heparin 5,000 UNITS/ML VIAL SC SCH ×2 (08:59→20:10)
[2018-02-12] MEDS: hydrALAZINE 25 MG TAB PO SCH ×2 (08:59→18:06)
[2018-02-12] MEDS: Aspirin 81 mg Enteric Coated Tablet PO SCH (08:59)
[2018-02-12 11:24] LABS: Sodium 122 mmol/L (136-145)
--- NOTE | 2018-02-12 13:55 | PRG ---
DATE OF SERVICE: 02/12/2018 SERVICE: Pulmonary Medicine INTERVAL HISTORY: The patient is doing outstanding from a respiratory standpoint. She is breathing comfortably. She has been weaned down to room air. She denies any chest pain, nausea, vomiting, fevers or chills. Otherwise , there has been no interval change to her condition. PHYSICAL EXAMINATION: VITAL SIGNS: Afebrile, pulse 87, blood pressure 112/49, respirations 19, saturation 97% on room air. GENERAL: Patient is awake, alert, no apparent distress. LUNGS: Improving air entry. There are no crackles today. There is a prolonged expiratory phase, but I do not appreciate any wheezing or rhonchi. HEART: Normal rate, regular. ABDOMEN: Soft, nontender, nondistended. Bowel sounds are positive. MUSCULOSKELETAL: No cyanosis or clubbing. No pitting in the bilateral lower extremities. NEUROLOGIC: Grossly nonfocal. LABORATORY DATA: Sodium has improved to 122, creatinine 0.72, phosphorus 1.8. Blood cultures x2 are unremarkable. IMAGING: Echocardiogram demonstrates normal ejection fraction with diastolic dysfunction. ASSESSMENT: 1. Acute hypoxic respiratory failure, resolved. 2. Acute on chronic diastolic heart failure. 3. Syndrome of inappropriate antidiuretic hormone secretion, suspected. 4. Hyponatremia. 5. Emphysema based on CT findings. 6. Right hilar soft tissue density with some mediastinal lymphadenopathy, liver lesions, and adrenal lesion. DISCUSSION AND PLAN: For the lung lesion, I would have no plans to do anything except for repeating a CT scan in 3 months. The patient would like to have a better understanding of what is going on in her lung, but I have no good or reliable way of sampling. Furthermore, she suggests to me that even if she did have a cancer process, she would not want chemotherapy or radiation. Getting at this lesion would require large open procedure, one she would not tolerate well. As such, after discussing the risks and benefits of pursuing a biopsy versus not, she has elected to leave this thing where it is. As such no CT scan will be set up as it would not change our management. I will back off on the Lasix. She can be transitioned to the floor at this time. Pulmonary Critical Care will continue to follow along if she remains in this location, however. NOHEMI
[2018-02-12 17:23] LABS: Sodium 124 mmol/L (136-145)
--- NOTE | 2018-02-12 23:01 | PDOC.PN ---
- Subjective Encounter Start Date: 02/12/18 Encounter Start Time: 12:30 Patient seen and examined for hyponatremia/resp failure. No new complaints. No overnight events - Objective Resuscitation Status: Resuscitation Status DNR:Do Not Resuscitate MAR Reviewed: Yes Vital Signs & Weight: Vital Signs (12 hours) Temp Pulse Pulse Pulse Resp BP BP 02/12/18 19:48 97.6 F 66 21 H 02/12/18 19:26 97.6 F 66 21 H 02/12/18 18:06 85 153/66 H 02/12/18 15:18 83 84 141/61 H 02/12/18 15:09 98.3 F 85 20 BP BP Pulse Ox Pulse Ox Pulse Ox 02/12/18 19:48 96 02/12/18 19:26 132/57 L 96 02/12/18 18:06 02/12/18 15:18 136/55 L 93 L 97 02/12/18 15:09 140/54 L 95 Weight Admit Weight 118 lb 12.8 oz Weight 118 lb 12.8 oz I&O: 02/11/18 02/12/18 02/13/18 06:59 06:59 06:59 Intake Total 250 1160 1008.7 Output Total 900 1600 1650 Balance -650 -440 -641.3 Result Diagrams: 02/11/18 05:41 02/13/18 03:35 EKG Reviewed by me: Yes (Tele SR) Phys Exam - Physical Examination Constitutional: NAD Respiratory: no wheezing, no rhonchi Cardiovascular: RRR, no rub Gastrointestinal: soft, non-tender, positive bowel sounds Neurological: moves all 4 limbs Psychiatric: A&O x 3 Dx/Plan - Plan PT/OT, DVT proph w/heparin, DVT proph w/SCDs IMPRESSION: 1. Toxic Metabolic Encephalopathy 2. Hyponatremia due to SIADH 3. Hypokalemia/Hypophosphatemia 4. Acute hypoxic resp failure due to Acute on chronic diastolic HF - off NIPPV 5. CAD/PAD - on ASA/Plavix 6. Lung mass 7. HTN/HLD/h/o IVC filter PLAN: Cont fluid rest 1200ml/24 hr AM labs Transfer to tele Cont supportive care Cont ASA/Plavix Replace Phosphorus Laboratory Tests 02/10/18 02/11/18 02/11/18 17:54 09:02 09:02 Sodium 118 L* Potassium 3.3 L Serum Osmolality 240 L* Phosphorus 1.7 L 02/12/18 03:44 Sodium 118 L* Potassium Serum Osmolality Phosphorus 1.8 L Review of Systems - Review of Systems Respiratory: negative: Cough, Dry, Shortness of Breath, Hemoptysis, SOB with Excertion, Pleuritic Pain, Sputum, Wheezing Cardiovascular: negative: chest pain, palpitations, orthopnea, paroxysmal nocturnal dyspnea, edema, light headedness, other - Medications/Allergies Allergies/Adverse Reactions: Allergies Allergy/AdvReac Type Severity Reaction Status Date / Time meperidine [From Demerol] Allergy Verified 02/10/18 21:49 Medications: Current Medications Amlodipine Besylate (Norvasc) 5 mg PO DAILY [facility] Last Admin: 02/12/18 08:58 Dose: 5 mg Aspirin (Ecotrin) 81 mg PO DAILY [facility] Last Admin: 02/12/18 08:59 Dose: 81 mg Atorvastatin Calcium (Lipitor) 20 mg PO DAILY [facility] Last Admin: 02/12/18 08:58 Dose: 20 mg Clopidogrel Bisulfate (Plavix) 75 mg PO DAILY [facility] Last Admin: 02/12/18 08:58 Dose: 75 mg Cyclobenzaprine HCl (Flexeril) 5 mg PO TIDPRN PRN PRN Reason: Muscle Spasm Heparin Sodium (Porcine) (Heparin) 5,000 units SC BID [facility] Last Admin: 02/12/18 20:10 Dose: 5,000 units [facility] Last Admin: 02/12/18 18:06 Dose: 25 mg Hydralazine HCl (Apresoline) 10 mg SLOW IVP Q4H PRN PRN Reason: SBP Greater Than 180 Conivaptan HCl 20 mg/ Device 100 mls @ 4.16 mls/hr IVPB INF [facility] Last Admin: 02/12/18 06:07 Dose: 100 mls [facility]art[facility]) [facility] Last Admin: 02/12/18 18:07 Dose: 50 mg Miscellaneous Medication (Pharmacy To Dose) 1 each IVPB PRN PRN PRN Reason: Pharmacy to dose Olmesartan (Benicar) 20 mg PO BID [facility] Last Admin: 02/12/18 20:04 Dose: 20 mg
[2018-02-12 23:03] LABS: Sodium 126 mmol/L (136-145)
[2018-02-13 04:12] LABS: Anion Gap 14 mmol/L (10-20); BUN (Urea Nitrogen) 16 mg/dL (9.8-20.1); Calc. Creatinine Clearance 42 mL/min (70-130); Calcium 8.8 mg/dL (7.8-10.44); Carbon Dioxide 20 mmol/L (23-31); Chloride 97 mmol/L (98-107); Estimated GFR-MDRD 69; Glucose 96 mg/dL (83-110); Magnesium 2.2 mg/dL (1.6-2.6); Phosphorus 1.2 mg/dL (2.3-4.7); Potassium 4.2 mmol/L (3.5-5.1); Sodium 127 mmol/L (136-145)
[2018-02-13] MEDS ORDERED: Potassium Phosphate 21 MMOL in Sodium Chloride 0.9% 250 ML 250 ML IVPB SCH (04:30)
[2018-02-13] MEDS: Acetaminophen 325 MG TAB PO PRN (05:18)
[2018-02-13] MEDS: Conivaptan 20 MG in Premix Bag 1 BAG IVPB SCH (05:19)
[2018-02-13] MEDS: Amlodipine 5 MG TAB PO SCH (08:12)
[2018-02-13] MEDS: Clopidogrel Bisulfate 75 MG TAB PO SCH (08:12)
[2018-02-13] MEDS: Aspirin 81 mg Enteric Coated Tablet PO SCH (08:12)
[2018-02-13] MEDS: Metoprolol Tartrate 50 MG TAB PO SCH ×2 (08:12→16:55)
[2018-02-13] MEDS: Atorvastatin Calcium 20 MG TAB PO SCH (08:12)
[2018-02-13] MEDS: hydrALAZINE 25 MG TAB PO SCH ×2 (08:13→16:55)
[2018-02-13] MEDS: Heparin 5,000 UNITS/ML VIAL SC SCH ×2 (08:13→20:33)
--- NOTE | 2018-02-13 11:45 | PRG ---
DATE OF SERVICE: 02/13/2018 SERVICE: Pulmonary Medicine. INTERVAL HISTORY: The patient is doing fine from a respiratory standpoint. She is having intermitte nt bouts of nausea. She is also going in and out of bigeminy. That being said, there were no signif icant overnight events. She does not have any medications for the nausea. That being said, she did not mention it until I asked her. She has been getting out of bed into a chair. Her strength is imp roving, albeit slowly. PHYSICAL EXAMINATION: VITAL SIGNS: Afebrile, pulse 81, blood pressure 98/54, respirations 16, saturation 100% on 2 liters nasal cannula. GENERAL: The patient is awake, alert, in no apparent distress. LUNGS: Decent air entry. There are minimal crackles present, which are a touch asymmetric and more pronounced on the left. HEART: Normal rate, regular. ABDOMEN: Soft, nontender, nondistended. Bowel sounds are positive. MUSCULOSKELETAL: No cyanosis or clubbing. There is no pitting in the bilateral lower extremities. NEUROLOGIC: Grossly nonfocal. LABORATORY DATA: Sodium is gently up trending to 127. Basic metabolic profile is otherwise unremark able. Phosphorus 1.2. Blood cultures x2 are unremarkable. ASSESSMENT: 1. Acute hypoxic respiratory failure, resolved. 2. Acute on chronic diastolic heart failure. 3. Syndrome of inappropriate antidiuretic hormone secretion, suspected. 4. Hyponatremia, improving. 5. Emphysema based on CT findings. 6. Right hilar soft tissue density with some mediastinal lymphadenopathy, liver lesions and adrenal lesion. DISCUSSION AND PLAN: I will replace her phosphorus. Nausea medication will be provided on an as nee ded basis. She is stable for transition to the telemetry unit. I had a conversation with the patien delmi and Bijan, her grandson in [place]. After discussing the risks and benefits of pursuing a sample of the right hilar lesion, they have elected to not pursue it. The patient is also suggested that u nder no circumstances would she want to undergo radiation and chemotherapy. I think this is a good p ath forward given her severe debility at baseline. At this point, no interval CT scan needs to be pe rformed. I will leave the liver lesions and adrenal lesion to primary service. Interventional Radio logy could certainly get us a sample of one of these things if the patient was inclined to do so. I will continue to follow for an additional 24 hours.
[2018-02-13] MEDS: Ondansetron ODT 4 MG TAB SL PRN (11:58)
[2018-02-13 16:31] LABS: Sodium 128 mmol/L (136-145)
[2018-02-13] MEDS ORDERED: Conivaptan 20 MG in Premix Bag 1 BAG IVPB SCH (17:40)
--- NOTE | 2018-02-13 23:08 | PDOC.PN ---
- Subjective Encounter Start Date: 02/13/18 Encounter Start Time: 17:00 Patient seen and examined for Encephalopathy/Hyponatremia. No new complaints except for some nausea earlier - resolved. No overnight events - Objective Resuscitation Status: Resuscitation Status DNR:Do Not Resuscitate MAR Reviewed: Yes Vital Signs & Weight: Vital Signs (12 hours) Temp Pulse Resp BP Pulse Ox 02/13/18 20:00 97.6 F 93 21 H 98 02/13/18 19:34 97.6 F 93 21 H 125/38 L 96 02/13/18 16:55 71 02/13/18 15:00 98.1 F 71 20 130/54 L 94 L Weight Admit Weight 118 lb 12.8 oz Weight 113 lb 12.136 oz I&O: 02/12/18 02/13/18 02/14/18 06:59 06:59 06:59 Intake Total 1160 1308.7 250 Output Total 1600 2050 Balance -440 -741.3 250 Result Diagrams: 02/14/18 04:25 02/14/18 04:25 Additional Labs: Laboratory Tests 02/13/18 02/13/18 03:35 16:10 Sodium 127 L 128 L Potassium 4.2 Carbon Dioxide 20 L Phosphorus 1.2 L EKG Reviewed by me: Yes (Tele SR with PVCs) Phys Exam - Physical Examination Constitutional: NAD Respiratory: no wheezing, no rhonchi Cardiovascular: RRR, no rub Gastrointestinal: soft, non-tender, positive bowel sounds Musculoskeletal: no edema Neurological: moves all 4 limbs Dx/Plan - Plan DVT proph w/heparin, DVT proph w/SCDs IMPRESSION: 1. Toxic Metabolic Encephalopathy - improving 2. Hyponatremia due to SIADH - improving 3. Hypokalemia/Hypophosphatemia 4. Acute hypoxic resp failure due to Acute on chronic diastolic HF - off NIPPV 5. CAD/PAD - on ASA/Plavix 6. Lung mass 7. HTN/HLD/h/o IVC filter PLAN: Cont Vaprisol with fluid rest 1200ml/24 hr AM labs DC Amlodipine Replace Phosphorus Awating tele bed Cont supportive care Cont ASA/Plavix Review of Systems - Review of Systems Respiratory: negative: Cough, Dry, Shortness of Breath, Hemoptysis, SOB with Excertion, Pleuritic Pain, Sputum, Wheezing Cardiovascular: negative: chest pain, palpitations, orthopnea, paroxysmal nocturnal dyspnea, edema, light headedness, other - Medications/Allergies Allergies/Adverse Reactions: Allergies Allergy/AdvReac Type Severity Reaction Status Date / Time meperidine [From Demerol] Allergy Verified 02/10/18 21:49 Medications: Current Medications Acetaminophen (Tylenol) 650 mg PO Q4H PRN PRN Reason: Headache/Fever or Pain Last Admin: 02/13/18 05:18 Dose: 650 mg Aspirin (Ecotrin) 81 mg PO DAILY [facility] Last Admin: 02/13/18 08:12 Dose: 81 mg Atorvastatin Calcium (Lipitor) 20 mg PO DAILY [facility] Last Admin: 02/13/18 08:12 Dose: 20 mg Clopidogrel Bisulfate (Plavix) 75 mg PO DAILY [facility] Last Admin: 02/13/18 08:12 Dose: 75 mg Cyclobenzaprine HCl (Flexeril) 5 mg PO TIDPRN PRN PRN Reason: Muscle Spasm Heparin Sodium (Porcine) (Heparin) 5,000 units SC BID [facility] Last Admin: 02/13/18 20:33 Dose: 5,000 units Hydralazine HCl (Apresoline) 10 mg SLOW IVP Q4H PRN PRN Reason: SBP Greater Than 180 Hydralazine HCl (Apresoline) 25 mg PO BID-[facility] Last Admin: 02/13/18 16:55 Dose: Not Given Conivaptan HCl 20 mg/ Device 100 mls @ 4.16 mls/hr IVPB INF [facility] Stop: 02/14/18 05:00 Metoprolol Tartrate (Lopressor) 50 mg PO BID-[facility] Last Admin: 02/13/18 16:55 Dose: Not Given Miscellaneous Medication (Pharmacy To Dose) 1 each IVPB PRN PRN PRN Reason: Pharmacy to dose Miscellaneous Medication (Phos-Nak) 1 pkt PO TID-[facility] Last Admin: 02/13/18 16:56 Dose: Not Given Olmesartan (Benicar) 20 mg PO BID [facility] Last Admin: 02/13/18 20:33 Dose: Not Given Ondansetron HCl (Zofran Odt) 4 mg SL Q6H PRN PRN Reason: Nausea/Vomiting Last Admin: 02/13/18 11:58 Dose: 4 mg Tolvaptan (Samsca) 15 mg PO DAILY [facility]
[2018-02-14 05:19] LABS: #Eosinphils 0.1 thou/uL (0.0-0.7); #Lymphocytes 1.1 thou/uL (1.20-3.40); #Monocytes 1.2 thou/uL (0.11-0.59); #Neutrophils 6.5 thou/uL (1.40-6.50); %Basophils 0.1 % (0.0-1.0); %Eosinophils 0.6 % (0.0-10.0); %Lymphocytes 11.9 % (21.0-51.0); %Monocytes 13.3 % (0.0-10.0); %Neutrophils 74.2 % (42.0-75.0); Hemoglobin 12.4 g/dL (12.0-16.0); Mean Corpuscular HGB CONC 33.9 g/dL (32.0-36.0); Mean Corpuscular Volume 82.7 fL (78.0-98.0); Mean Platelet Volume 7.7 fL (7.4-10.4); Platelet Count 142 thou/uL (130-400); Red Blood Cell (RBC) Count 4.43 mill/uL (4.20-5.40); White Blood Cell (WBC) Count 8.8 thou/uL (4.8-10.8)
[2018-02-14 05:46] LABS: Albumin 3.4 g/dL (3.4-4.8); Anion Gap 14 mmol/L (10-20); BUN (Urea Nitrogen) 15 mg/dL (9.8-20.1); BUN/Creatinine Ratio 19.74; Calc. Creatinine Clearance 44 mL/min (70-130); Calcium 8.6 mg/dL (7.8-10.44); Carbon Dioxide 20 mmol/L (23-31); Chloride 100 mmol/L (98-107); Estimated GFR-MDRD 72; Glucose 102 mg/dL (83-110); Phosphorus 2.9 mg/dL (2.3-4.7); Potassium 3.5 mmol/L (3.5-5.1); Sodium 130 mmol/L (136-145)
--- NOTE | 2018-02-14 08:25 | PRG ---
DATE OF SERVICE: 02/12/2018 SUBJECTIVE: Patient is seen and examined, doing so much better now. Sitting up on a chair not ed with the following vital signs. PHYSICAL EXAMINATION: VITAL SIGNS: Afebrile with temperature 98.3, pulse 85, respiratory rate 20, O2 sat 95%, blood pressu re 140/54. HEENT: Unremarkable. CARDIOVASCULAR: First and second heart sounds were heard. RESPIRATORY: Clear to auscultation. DIGESTIVE: Revealed a benign abdomen. Positive bowel sounds. EXTREMITIES: No peripheral edema. SKIN: No new gross rash. LYMPHATICS: No peripheral lymphadenopathy. LABORATORY INVESTIGATION: Showed a sodium of 124. IMPRESSION: 1. Hyponatremia in the context of problem #2. 2. Syndrome of inappropriate antidiuretic hormone secretion. PLAN: The patient seems to be responding to Vaprisol. Therefore, we will continue with this. At so me point, the patient will be transitioned over to oral tolvaptan, but for now we will continue with this. We will continue to follow with you
[2018-02-14] MEDS: Metoprolol Tartrate 50 MG TAB PO SCH ×2 (09:34→17:07)
[2018-02-14] MEDS: Atorvastatin Calcium 20 MG TAB PO SCH (09:34)
[2018-02-14] MEDS: hydrALAZINE 25 MG TAB PO SCH ×2 (09:34→17:07)
[2018-02-14] MEDS: Heparin 5,000 UNITS/ML VIAL SC SCH ×2 (09:35→20:40)
[2018-02-14] MEDS: Aspirin 81 mg Enteric Coated Tablet PO SCH (09:35)
[2018-02-14] MEDS: Clopidogrel Bisulfate 75 MG TAB PO SCH (09:35)
[2018-02-14] MEDS ORDERED: Potassium Chloride 20 MEQ TAB PO SCH (11:30)
--- NOTE | 2018-02-14 11:34 | PRG ---
DATE OF SERVICE: 02/14/2018 SERVICE: Pulmonary Medicine. INTERVAL HISTORY: The patient is doing outstanding from a respiratory standpoint. She is breathing comfortably. She denies any chest pain, nausea, vomiting. She is on 3 liters nasal cannula, but her saturations are fantastic. There has been no interval change to her condition otherwise. PHYSICAL EXAMINATION: VITAL SIGNS: Afebrile, pulse 110, blood pressure 122/55, respirations 28, saturation 94% on 3 liters nasal cannula. GENERAL: The patient is awake and alert, in no apparent distress. LUNGS: Decent air entry. There is no prolonged expiratory phase. There is no rhonchi or crackles a re appreciated. HEART: Normal rate, regular. ABDOMEN: Soft, nontender, nondistended. Bowel sounds are positive. MUSCULOSKELETAL: No cyanosis or clubbing. There is no pitting today. NEUROLOGIC: Grossly nonfocal. LABORATORY DATA: WBC 8.8, hemoglobin 12.4, platelets 142. Sodium 130, potassium 3.5. Basic metabol ic profile is otherwise completely unremarkable. Magnesium and phosphorus fall within the normal chaidez its. ASSESSMENT: 1. Acute hypoxic respiratory failure, resolved. 2. Acute on chronic diastolic heart failure. 3. Syndrome of inappropriate antidiuretic hormone secretion, suspected. 4. Hyponatremia, resolving. 5. Emphysema based on CT findings. 6. Right hilar soft tissue density with calcified mediastinal lymphadenopathy, liver lesions, and ad renal lesion. DISCUSSION AND PLAN: She can be transitioned out of the ICU to the regular floor. At that point, keith fair will have no further requirements for inpatient Pulmonary or Critical Care opinion, but I will cont inue to follow until that time. Potassium will be replaced.
[2018-02-14] MEDS ORDERED: Tolvaptan 15 MG TAB PO SCH (12:45)
--- NOTE | 2018-02-14 16:46 | RAD ---
TWO VIEW CHEST: HISTORY: Shortness of breath. Follow up effusion. COMPARISON: Portable film of 02/11/2018. FINDINGS: A moderate sized right pleural effusion is noted. There is mild vascular engorgement and interstitia l congestion, similar to the prior exam. No significant right effusion. Prominent aortic calcificat ion. Heart size within normal range. IMPRESSION: Small to moderate right pleural effusion. Mild vascular and interstitial congestion with changes of chronic obstructive pulmonary disease, including hyperexpansion. POS: CLAIR
[2018-02-14] MEDS: Ondansetron ODT 4 MG TAB SL PRN (18:57)
--- NOTE | 2018-02-14 20:07 | PRG ---
DATE OF SERVICE: 02/14/2018 The patient was seen and examined, noted with the following vital signs. The patient is doing so muc h better now. PHYSICAL EXAMINATION: VITAL SIGNS: Afebrile, temperature 98.3, pulse 85, respiratory rate of 19, blood pressure 146/53. HEENT: Unremarkable. CARDIOVASCULAR: First and second heart sounds were heard. RESPIRATORY: Clear to auscultation. DIGESTIVE: Revealed a benign abdomen with positive bowel sounds. EXTREMITIES: No peripheral edema. SKIN: No new gross rash. LYMPHATICS: No peripheral lymphadenopathy. IMPRESSION: Hyponatremia in the context of syndrome of inappropriate antidiuretic hormone responding well to treatment. PLAN: The patient is currently on oral tolvaptan. We will continue with this medication for a few m ore days.
--- NOTE | 2018-02-14 22:49 | PDOC.PN ---
- Subjective Encounter Start Date: 02/14/18 Encounter Start Time: 19:15 Patient seen and examined for Encephalopathy. No new complaints except for intermittent nausea. No overnight events - Objective Resuscitation Status: Resuscitation Status DNR:Do Not Resuscitate MAR Reviewed: Yes Vital Signs & Weight: Vital Signs (12 hours) Temp Pulse Pulse Pulse Resp BP BP 02/14/18 19:36 98.3 F 85 26 H 02/14/18 17:07 96 133/42 L 02/14/18 16:30 98.6 F 74 19 02/14/18 12:34 98.6 F 90 33 H 02/14/18 11:15 72 72 121/55 L BP BP BP Pulse Ox Pulse Ox Pulse Ox 02/14/18 19:36 146/53 H 98 02/14/18 17:07 02/14/18 16:30 132/56 L 94 L 02/14/18 12:34 120/45 L 93 L 02/14/18 11:15 116/57 L 97 97 Weight Admit Weight 118 lb 12.8 oz Weight 119 lb 1.6 oz I&O: 02/13/18 02/14/18 02/15/18 06:59 06:59 06:59 Intake Total 1308.7 560 730 Output Total 2050 400 300 Balance -741.3 160 430 Result Diagrams: 02/14/18 04:25 02/15/18 03:38 EKG Reviewed by me: Yes (Tele SR) Phys Exam - Physical Examination Constitutional: NAD Respiratory: no wheezing, no rhonchi Cardiovascular: RRR, no rub Gastrointestinal: soft, non-tender, positive bowel sounds Musculoskeletal: no edema Neurological: moves all 4 limbs Dx/Plan - Plan DVT proph w/heparin, DVT proph w/SCDs IMPRESSION: 1. Toxic Metabolic Encephalopathy - improving 2. Hyponatremia due to SIADH - improving 3. Hypokalemia/Hypophosphatemia 4. Acute hypoxic resp failure due to Acute on chronic diastolic HF - off NIPPV 5. CAD/PAD - on ASA/Plavix 6. Lung mass 7. HTN/HLD/h/o IVC filter PLAN: Reduce Metoprolol dose due to bradycardia Cont Samsca with fluid rest 1200ml/24 hr Cont supportive care Cont other meds as below Review of Systems - Review of Systems Respiratory: negative: Cough, Dry, Shortness of Breath, Hemoptysis, SOB with Excertion, Pleuritic Pain, Sputum, Wheezing Cardiovascular: negative: chest pain, palpitations, orthopnea, paroxysmal nocturnal dyspnea, edema, light headedness, other - Medications/Allergies Allergies/Adverse Reactions: Allergies Allergy/AdvReac Type Severity Reaction Status Date / Time meperidine [From Demerol] Allergy Verified 02/10/18 21:49 Medications: Current Medications Acetaminophen (Tylenol) 650 mg PO Q4H PRN PRN Reason: Headache/Fever or Pain Last Admin: 02/13/18 05:18 Dose: 650 mg Aspirin (Ecotrin) 81 mg PO DAILY [facility] Last Admin: 02/14/18 09:35 Dose: 81 mg Atorvastatin Calcium (Lipitor) 20 mg PO DAILY [facility] Last Admin: 02/14/18 09:34 Dose: 20 mg Clopidogrel Bisulfate (Plavix) 75 mg PO DAILY [facility] Last Admin: 02/14/18 09:35 Dose: 75 mg Cyclobenzaprine HCl (Flexeril) 5 mg PO TIDPRN PRN PRN Reason: Muscle Spasm Heparin Sodium (Porcine) (Heparin) 5,000 units SC BID [facility] Last Admin: 02/14/18 20:40 Dose: 5,000 units Hydralazine HCl (Apresoline) 10 mg SLOW IVP Q4H PRN PRN Reason: SBP Greater Than 180 Hydralazine HCl (Apresoline) 25 mg PO BID-[facility] Last Admin: 02/14/18 17:07 Dose: 25 mg [facility] Last Admin: 02/14/18 17:07 Dose: 50 mg Miscellaneous Medication (Pharmacy To Dose) 1 each IVPB PRN PRN PRN Reason: Pharmacy to dose Miscellaneous Medication (Phos-Nak) 1 pkt PO TID-[facility] Last Admin: 02/14/18 17:08 Dose: 1 pkt Olmesartan (Benicar) 20 mg PO BID [facility] Last Admin: 02/14/18 20:40 Dose: Not Given Ondansetron HCl (Zofran Odt) 4 mg SL Q6H PRN PRN Reason: Nausea/Vomiting Last Admin: 02/14/18 18:57 Dose: 4 mg Tolvaptan (Samsca) 15 mg PO DAILY [facility]
[2018-02-14] MEDS: Acetaminophen 325 MG TAB PO PRN (22:51)
[2018-02-15 04:06] LABS: Albumin 3.4 g/dL (3.4-4.8); Anion Gap 13 mmol/L (10-20); BUN (Urea Nitrogen) 20 mg/dL (9.8-20.1); Calc. Creatinine Clearance 33 mL/min (70-130); Carbon Dioxide 22 mmol/L (23-31); Chloride 101 mmol/L (98-107); Estimated GFR-MDRD 52; Glucose 110 mg/dL (83-110); Potassium 4.1 mmol/L (3.5-5.1); Sodium 132 mmol/L (136-145)
[2018-02-15] MEDS: hydrALAZINE 25 MG TAB PO SCH ×2 (08:38→17:56)
[2018-02-15] MEDS: Atorvastatin Calcium 20 MG TAB PO SCH (08:38)
[2018-02-15] MEDS: Aspirin 81 mg Enteric Coated Tablet PO SCH (08:38)
[2018-02-15] MEDS: Heparin 5,000 UNITS/ML VIAL SC SCH ×2 (08:39→20:27)
[2018-02-15] MEDS: Metoprolol Tartrate 25 MG TAB PO SCH ×2 (08:39→20:32)
[2018-02-15] MEDS: Clopidogrel Bisulfate 75 MG TAB PO SCH (08:39)
[2018-02-15] MEDS: Tolvaptan 15 MG TAB PO SCH (08:40)
--- NOTE | 2018-02-15 08:41 | PRG ---
DATE OF SERVICE: 02/15/2018 SUBJECTIVE: The patient was seen and examined, seems to be doing much better. PHYSICAL EXAMINATION: VITAL SIGNS: Afebrile, temperature 98, pulse 94, respiratory rate of 21, O2 sat 96% with blood press ure 139/61. HEENT: Unremarkable. CARDIOVASCULAR SYSTEM: First and second heart sounds were heard. RESPIRATORY SYSTEM: Clear to auscultation. DIGESTIVE SYSTEM: Revealed a benign abdomen with positive bowel sounds. EXTREMITIES: No peripheral edema. SKIN: No new gross rash. LYMPHATICS: No peripheral lymphadenopathy. LABORATORY INVESTIGATION: Showed sodium of 132, bicarbonate of 22. IMPRESSION: Hyponatremia in the context of syndrome of inappropriate antidiuretic hormone, which is much improved. The patient is currently on oral tolvaptan. PLAN: 1. The patient to continue with free water restriction and one or two more days of tolvaptan and we will continue with conservative measures. 2. Outpatient Nephrology followup status post discharge strongly recommended.
--- NOTE | 2018-02-15 10:30 | PRG ---
DATE OF SERVICE: 02/15/2018 SERVICE: Pulmonary Medicine. INTERVAL HISTORY: The patient doing great from a respiratory standpoint. Denies any current chest p ain, nausea, vomiting, fevers, or chills. She has no difficulties with her breathing. She is sittin g in a chair, sleeping once again. She wakes up easily and stays awake for the entire duration of ou r conversation. PHYSICAL EXAMINATION: VITAL SIGNS: Afebrile, pulse 94, blood pressure 139/61, respirations 21, and saturation 96% on 3 lit ers nasal cannula. GENERAL: The patient is awake, alert, in no apparent distress. LUNGS: Excellent air entry. Minimal crackles are present. No prolonged expiratory phase or wheezin g is appreciated. HEART: Normal rate, regular. ABDOMEN: Soft, nontender, nondistended. Bowel sounds are positive. MUSCULOSKELETAL: No cyanosis or clubbing. No pitting in the bilateral lower extremities. NEUROLOGIC: Grossly nonfocal. LABORATORY DATA: Sodium 132. Basic metabolic profile is otherwise unremarkable. Phosphorus is norm al. Blood cultures x2 are unremarkable. IMAGING DATA: Chest x-ray demonstrates large gastric bubble. Small to moderate right-sided pleural effusion with mild vascular interstitial congestion with changes of chronic obstructive disease. Oth erwise, there is no acute cardiopulmonary abnormality. ASSESSMENT: 1. Acute hypoxic respiratory failure, resolved. 2. Acute on chronic diastolic heart failure. 3. Syndrome inappropriate antidiuretic hormone secretion, suspected. 4. Hyponatremia, nearly resolved. 5. Emphysema based on CT findings. 6. Right soft tissue density with calcified mediastinal lymphadenopathy, liver lesions, and adrenal lesion. 7. Pleural effusion, persisting. DISCUSSION AND PLAN: After we diurese the patient, she has a persistent right-sided pleural effusion , which really has not changed that much. I will do a bedside ultrasound. If there is a nice pocket of fluid there, it will be sampled and sent off for cytology. This may be an easy way to arrive at an answer for our underlying process.
[2018-02-15] MEDS ORDERED: Bisacodyl 10 MG SUPP PR PRN (15:21)
[2018-02-15] MEDS ORDERED: Milk Of Magnesia 30 ML UDCUP PO PRN (15:21)
--- NOTE | 2018-02-15 17:45 | PDOC.PN ---
- Subjective Encounter Start Date: 02/15/18 Encounter Start Time: 17:44 Patient seen and examined. NAD. Patient sitting by the bedside. States that she is feeling well. Has been having some constipation. - Objective Resuscitation Status: Resuscitation Status DNR:Do Not Resuscitate Vital Signs & Weight: Vital Signs (12 hours) Temp Pulse Pulse Pulse Resp BP BP 02/15/18 16:48 97.8 F 97 22 H 02/15/18 15:50 98.9 F 101 H 23 H 02/15/18 11:38 98.2 F 83 26 H 02/15/18 11:37 81 68 122/41 L 02/15/18 08:38 94 139/61 02/15/18 08:00 98 F 94 21 H 02/15/18 07:56 98.0 F 94 21 H BP BP BP Pulse Ox Pulse Ox Pulse Ox 02/15/18 16:48 156/64 H 93 L 02/15/18 15:50 136/40 L 94 L 02/15/18 11:38 111/36 L 100 02/15/18 11:37 117/42 L 88 L 94 L 02/15/18 08:38 02/15/18 08:00 96 02/15/18 07:56 139/61 96 Weight Admit Weight 118 lb 12.8 oz Weight 119 lb 4.8 oz I&O: 02/14/18 02/15/18 02/16/18 06:59 06:59 06:59 Intake Total 560 970 957 Output Total 400 620 150 Balance 160 350 807 Result Diagrams: 02/14/18 04:25 02/15/18 03:38 Phys Exam - Physical Examination Constitutional: NAD HEENT: PERRLA, moist MMs Neck: no JVD, supple, full ROM Respiratory: no wheezing, no rales, no rhonchi, clear to auscultation bilateral Cardiovascular: RRR Gastrointestinal: soft, non-tender, no distention Musculoskeletal: pulses present Neurological: non-focal, normal sensation, moves all 4 limbs Psychiatric: A&O x 3 Dx/Plan (1) SIADH (syndrome of inappropriate ADH production) Status: Acute Comment: Will continue tovalptan and follow up with nephro regarding recs. (2) Toxic metabolic encephalopathy Code(s): G92 - TOXIC ENCEPHALOPATHY Status: Resolved (3) Electrolyte abnormality Code(s): E87.8 - OTH DISORDERS OF ELECTROLYTE AND FLUID BALANCE, NEC Status: Resolved (4) Lung mass Code(s): R91.8 - OTHER NONSPECIFIC ABNORMAL FINDING OF LUNG FIELD Status: Chronic (5) Hypertension Code(s): I10 - ESSENTIAL (PRIMARY) HYPERTENSION Status: Acute (6) Acute respiratory failure with hypoxemia Code(s): J96.01 - ACUTE RESPIRATORY FAILURE WITH HYPOXIA Status: Acute Comment: resolved. will monitor - Plan * . see above. Review of Systems - Medications/Allergies Allergies/Adverse Reactions: Allergies Allergy/AdvReac Type Severity Reaction Status Date / Time meperidine [From Demerol] Allergy Verified 02/10/18 21:49 Medications: Current Medications Acetaminophen (Tylenol) 650 mg PO Q4H PRN PRN Reason: Headache/Fever or Pain Last Admin: 02/14/18 22:51 Dose: 650 mg Aspirin (Ecotrin) 81 mg PO DAILY [facility] Last Admin: 02/15/18 08:38 Dose: 81 mg Atorvastatin Calcium (Lipitor) 20 mg PO DAILY [facility] Last Admin: 02/15/18 08:38 Dose: 20 mg Bisacodyl (Dulcolax) 10 mg [place] DAILYPRN PRN PRN Reason: Constipation Clopidogrel Bisulfate (Plavix) 75 mg PO DAILY [facility] Last Admin: 02/15/18 08:39 Dose: 75 mg Cyclobenzaprine HCl (Flexeril) 5 mg PO TIDPRN PRN PRN Reason: Muscle Spasm Heparin Sodium (Porcine) (Heparin) 5,000 units SC BID [facility] Last Admin: 02/15/18 08:39 Dose: 5,000 units Hydralazine HCl (Apresoline) 10 mg SLOW IVP Q4H PRN PRN Reason: SBP Greater Than 180 Hydralazine HCl (Apresoline) 25 mg PO BID-[facility] Last Admin: 02/15/18 08:38 Dose: 25 mg Magnesium Hydroxide (Milk Of Magnesium) 30 ml PO DAILYPRN PRN PRN Reason: Constipation Metoprolol Tartrate (Lopressor) 25 mg PO BID [facility] Last Admin: 02/15/18 08:39 Dose: 25 mg Miscellaneous Medication (Pharmacy To Dose) 1 each IVPB PRN PRN PRN Reason: Pharmacy to dose Miscellaneous Medication (Phos-Nak) 1 pkt PO TID-[facility] Last Admin: 02/15/18 12:10 Dose: 1 pkt Olmesartan (Benicar) 20 mg PO BID [facility] Last Admin: 02/15/18 08:39 Dose: 20 mg Ondansetron HCl (Zofran Odt) 4 mg SL Q6H PRN PRN Reason: Nausea/Vomiting Last Admin: 02/14/18 18:57 Dose: 4 mg Tolvaptan (Samsca) 15 mg PO DAILY [facility] Last Admin: 02/15/18 08:40 Dose: 15 mg
[2018-02-16] MEDS: Acetaminophen 325 MG TAB PO PRN (01:07)
[2018-02-16] MEDS ORDERED: Melatonin 3 MG TAB PO PRN (01:58)
[2018-02-16 06:00] LABS: Hemoglobin 12.2 g/dL (12.0-16.0); Platelet Count 176 thou/uL (130-400)
[2018-02-16] MEDS: Heparin 5,000 UNITS/ML VIAL SC SCH ×2 (08:18→21:10)
[2018-02-16] MEDS: Aspirin 81 mg Enteric Coated Tablet PO SCH (08:19)
[2018-02-16] MEDS: Tolvaptan 15 MG TAB PO SCH (08:19)
[2018-02-16] MEDS: Atorvastatin Calcium 20 MG TAB PO SCH (08:20)
[2018-02-16] MEDS: Metoprolol Tartrate 25 MG TAB PO SCH ×2 (08:20→21:10)
[2018-02-16] MEDS: Clopidogrel Bisulfate 75 MG TAB PO SCH (08:20)
[2018-02-16] MEDS: hydrALAZINE 25 MG TAB PO SCH ×2 (08:20→17:06)
[2018-02-16] MEDS ORDERED: Lidocaine 1% (PF) 30 ML VIAL ONE (09:20)
[2018-02-16 11:28] LABS: Sodium 133 mmol/L (136-145)
[2018-02-16 12:48] VITALS: BMI 19.3
--- NOTE | 2018-02-16 14:26 | PDOC.PN ---
- Subjective Encounter Start Date: 02/16/18 Encounter Start Time: 14:24 Patient seen and examined. Not in acute distress. Patient is sitting in the chair by bedside. States that she knows that she has to go to rehab before going back to [place]. - Objective Resuscitation Status: Resuscitation Status DNR:Do Not Resuscitate MAR Reviewed: Yes Vital Signs & Weight: Vital Signs (12 hours) Temp Pulse Pulse Resp BP BP BP 02/16/18 11:28 98 F 88 18 02/16/18 11:18 88 124/58 L 02/16/18 08:20 94 133/61 02/16/18 08:15 98.9 F 94 18 02/16/18 04:00 97.7 F 111 H 20 153/68 H BP Pulse Ox Pulse Ox 02/16/18 11:28 124/58 L 95 02/16/18 11:18 95 02/16/18 08:20 02/16/18 08:15 133/61 93 L 02/16/18 04:00 97 Weight Admit Weight 118 lb 12.8 oz Weight 120 lb I&O: 02/15/18 02/16/18 02/17/18 06:59 06:59 06:59 Intake Total 970 1287 Output Total 620 525 150 Balance 350 762 -150 Result Diagrams: 02/16/18 05:13 02/16/18 09:54 Phys Exam - Physical Examination Constitutional: NAD HEENT: PERRLA, moist MMs Neck: no JVD, supple Respiratory: no wheezing Mild crackles at lung bases Cardiovascular: RRR, no significant murmur Gastrointestinal: soft, non-tender, no distention, positive bowel sounds Musculoskeletal: no edema, pulses present Neurological: non-focal, normal sensation, moves all 4 limbs Psychiatric: normal affect Skin: no rash, normal turgor -: crawford in place. Dx/Plan (1) SIADH (syndrome of inappropriate ADH production) Status: Resolved Comment: Sodium is stable. Will monitor. At this point we are awaiting a bed so that we can discharge the patient to Rehab. Patient has been accepted. Just needs a bed. (2) Toxic metabolic encephalopathy Code(s): G92 - TOXIC ENCEPHALOPATHY Status: Resolved Comment: stable at this time. (3) Electrolyte abnormality Code(s): E87.8 - OTH DISORDERS OF ELECTROLYTE AND FLUID BALANCE, NEC Status: Resolved (4) Lung mass Code(s): R91.8 - OTHER NONSPECIFIC ABNORMAL FINDING OF LUNG FIELD Status: Chronic Comment: Per Pulm. nothing to be done. (5) Hypertension Code(s): I10 - ESSENTIAL (PRIMARY) HYPERTENSION Status: Chronic (6) Acute respiratory failure with hypoxemia Code(s): J96.01 - ACUTE RESPIRATORY FAILURE WITH HYPOXIA Status: Resolved Comment: resolved. will monitor - Plan * . At this point we are awaiting a bed so that we can discharge the patient to Rehab. Patient has been accepted. Just needs a bed. Review of Systems - Review of Systems Constitutional: negative: fever, chills, sweats, weakness, malaise, other Eyes: negative: Pain, Vision Change, Conjunctivae Inflammation, Eyelid Inflammation, Redness, Other ENT: negative: Ear Pain, Ear Discharge, Nose Pain, Nose Discharge, Nose Congestion, Mouth Pain, Mouth Swelling, Throat Pain, Throat Swelling, Other Respiratory: negative: Cough, Dry, Shortness of Breath, Hemoptysis, SOB with Excertion, Pleuritic Pain, Sputum, Wheezing Cardiovascular: negative: chest pain, palpitations, orthopnea, paroxysmal nocturnal dyspnea, edema, light headedness, other Gastrointestinal: negative: Nausea, Vomiting, Abdominal Pain, Diarrhea, Constipation, Melena, Hematochezia, Other Genitourinary: negative: Dysuria, Frequency, Incontinence, Hematuria, Retention , Other Musculoskeletal: negative: Neck Pain, Shoulder Pain, Arm Pain, Back Pain, Hand Pain, Leg Pain, Foot Pain, Other Skin: negative: Rash, Lesions, Arie, Bruising, Other Neurological: negative: Weakness, Numbness, Incoordination, Change in Speech, Confusion, Seizures, Other - Medications/Allergies Allergies/Adverse Reactions: Allergies Allergy/AdvReac Type Severity Reaction Status Date / Time meperidine [From Demerol] Allergy Verified 02/10/18 21:49 Medications: Current Medications Acetaminophen (Tylenol) 650 mg PO Q4H PRN PRN Reason: Headache/Fever or Pain Last Admin: 02/16/18 01:07 Dose: 650 mg Aspirin (Ecotrin) 81 mg PO DAILY [facility] Last Admin: 02/16/18 08:19 Dose: 81 mg Atorvastatin Calcium (Lipitor) 20 mg PO DAILY [facility] Last Admin: 02/16/18 08:20 Dose: 20 mg Bisacodyl (Dulcolax) [address] DAILYPRN PRN PRN Reason: Constipation Clopidogrel Bisulfate (Plavix) 75 mg PO DAILY [facility] Last Admin: 02/16/18 08:20 Dose: 75 mg Cyclobenzaprine HCl (Flexeril) 5 mg PO TIDPRN PRN PRN Reason: Muscle Spasm Last Admin: 02/16/18 00:39 Dose: 5 mg Heparin Sodium (Porcine) (Heparin) 5,000 units SC BID [facility] Last Admin: 02/16/18 08:18 Dose: 5,000 units Hydralazine HCl (Apresoline) 10 mg SLOW IVP Q4H PRN PRN Reason: SBP Greater Than 180 Hydralazine HCl (Apresoline) 25 mg PO BID-[facility] Last Admin: 02/16/18 08:20 Dose: 25 mg Magnesium Hydroxide (Milk Of Magnesium) 30 ml PO DAILYPRN PRN PRN Reason: Constipation Melatonin (Melatonin) 3 mg PO HSPRN PRN PRN Reason: Insomnia Last Admin: 02/16/18 02:47 Dose: 3 mg Metoprolol Tartrate (Lopressor) 25 mg PO BID [facility] Last Admin: 02/16/18 08:20 Dose: 25 mg Miscellaneous Medication (Pharmacy To Dose) 1 each IVPB PRN PRN PRN Reason: Pharmacy to dose Miscellaneous Medication (Phos-Nak) 1 pkt PO TID-[facility] Last Admin: 02/16/18 11:27 Dose: 1 pkt Olmesartan (Benicar) 20 mg PO BID [facility] Last Admin: 02/16/18 08:19 Dose: 20 mg Ondansetron HCl (Zofran Odt) 4 mg SL Q6H PRN PRN Reason: Nausea/Vomiting Last Admin: 02/14/18 18:57 Dose: 4 mg Sodium Chloride (Flush - Normal Saline) 10 ml IVF Q12HR [facility] Sodium Chloride (Flush - Normal Saline) 10 ml IVF PRN PRN PRN Reason: Saline Flush Tolvaptan (Samsca) 15 mg PO DAILY [facility] Last Admin: 02/16/18 08:19 Dose: 15 mg
--- NOTE | 2018-02-16 17:45 | PRG ---
DATE OF SERVICE: 02/16/2018 SERVICE: Pulmonary Medicine. INTERVAL HISTORY: The patient is doing outstanding from a respiratory standpoint. She denies any cu rrent chest pain, nausea, vomiting, fevers, chills, shortness of breath. Otherwise, there has been n o interval change to her condition. She continues to breathe comfortably. She got put back on 2 lit ers nasal cannula overnight, but was on room air most of the day. PHYSICAL EXAMINATION: VITAL SIGNS: Afebrile, pulse 88, blood pressure 124/58, respirations 18, saturation 95% on 3 liters nasal cannula. GENERAL: The patient is awake, alert, in no apparent distress. LUNGS: Decent air entry. There is no prolonged expiratory phase, wheezing, rhonchi or crackles. HEART: Normal rate, regular. ABDOMEN: Soft, nontender, nondistended. Bowel sounds positive. MUSCULOSKELETAL: No cyanosis or clubbing. No pitting in the bilateral lower extremities. NEUROLOGIC: Grossly nonfocal. LABORATORY DATA: Hemoglobin 12.2, platelets 176,000. Sodium 132, continuing to trend upward. Blood cultures x2 remain negative. ASSESSMENT: 1. Acute hypoxic respiratory failure, resolving. 2. Pleural effusion, much improved. On bedside ultrasound, it was only a small 50 mL pocket of flui d that I chose not to sample because it was too small. 3. Acute on chronic diastolic heart failure, improving. 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 5. Emphysema based on CT findings. 6. Right-sided soft tissue lung density with calcified mediastinal lymphadenopathy, liver lesions, a nd adrenal lesion. DISCUSSION AND PLAN: The pocket of fluid was simply too small to sample. When I compare the fluid s ample I saw to the original CTA of the chest on 02/10/2018, there has been a very significant interva l decrease in size of that pocket. As such, my suspicion is that this is water related. I do not th ink it would be safe to pursue a thoracentesis at this time. Certainly in 4-6 weeks in the outpatien t setting if this pocket of fluid grows, we can sample the procedure at that point. At this point, s he has no further requirements to be in the hospital. As such, I will sign off. Please call with ad ditional questions or concerns moving forward.
--- NOTE | 2018-02-16 23:13 | PRG ---
DATE OF SERVICE: 02/16/2018 SUBJECTIVE: Patient was seen and examined, seems to be doing much better noted with the following vi yolette signs. PHYSICAL EXAMINATION: VITAL SIGNS: Afebrile, pulse 88, respiratory rate of 18, blood pressure 124/58. HEENT: Unremarkable. CARDIOVASCULAR SYSTEM: First and second heart sounds were heard. RESPIRATORY SYSTEM: Clear to auscultation. DIGESTIVE SYSTEM: Revealed a benign abdomen. LYMPHATICS: No peripheral lymphadenopathy. LABORATORY DATA: Sodium 132. IMPRESSION: 1. Hyponatremia in the context of problem #2. 2. Syndrome of inappropriate antidiuretic hormone secretion. PLAN: 1. We will continue current conservative measures. Patient is off all anti-ADH medications powers staining the sodium level. 2. Further management will be dependent on the clinical course.
--- NOTE | 2018-02-17 08:10 | PDOC.PN ---
- Subjective Encounter Start Date: 02/17/18 Encounter Start Time: 08:08 seen and examined by me. NAD. - Objective Resuscitation Status: Resuscitation Status DNR:Do Not Resuscitate MAR Reviewed: Yes Vital Signs & Weight: Vital Signs (12 hours) Temp Pulse Resp BP BP Pulse Ox 02/17/18 07:27 98.2 F 92 16 162/73 H 94 L 02/17/18 04:00 97.8 F 95 18 166/71 H 97 Weight Admit Weight 118 lb 12.8 oz Weight 120 lb I&O: 02/16/18 02/17/18 02/18/18 06:59 06:59 06:59 Intake Total 1287 1200 Output Total 525 850 Balance 762 350 Result Diagrams: 02/16/18 05:13 02/17/18 09:15 Phys Exam - Physical Examination Constitutional: NAD HEENT: PERRLA, moist MMs Neck: no JVD Respiratory: no wheezing, no rales, no rhonchi Cardiovascular: RRR, no significant murmur, no rub Gastrointestinal: soft, non-tender, no distention Musculoskeletal: no edema, pulses present Neurological: non-focal, moves all 4 limbs Psychiatric: normal affect, A&O x 3 Skin: no rash Dx/Plan (1) SIADH (syndrome of inappropriate ADH production) Status: Resolved Comment: Sodium is stable. Will monitor. At this point we are awaiting a bed so that we can discharge the patient to Rehab. Patient has been accepted. Just needs a bed. (2) Toxic metabolic encephalopathy Code(s): G92 - TOXIC ENCEPHALOPATHY Status: Resolved Comment: stable at this time. (3) Electrolyte abnormality Code(s): E87.8 - OTH DISORDERS OF ELECTROLYTE AND FLUID BALANCE, NEC Status: Resolved (4) Lung mass Code(s): R91.8 - OTHER NONSPECIFIC ABNORMAL FINDING OF LUNG FIELD Status: Chronic Comment: Per Pulm. nothing to be done. (5) Hypertension Code(s): I10 - ESSENTIAL (PRIMARY) HYPERTENSION Status: Chronic (6) Acute respiratory failure with hypoxemia Code(s): J96.01 - ACUTE RESPIRATORY FAILURE WITH HYPOXIA Status: Resolved Comment: resolved. will monitor - Plan * . Review of Systems - Medications/Allergies Allergies/Adverse Reactions: Allergies Allergy/AdvReac Type Severity Reaction Status Date / Time meperidine [From Demerol] Allergy Verified 02/10/18 21:49 Medications: Current Medications Acetaminophen (Tylenol) 650 mg PO Q4H PRN PRN Reason: Headache/Fever or Pain Last Admin: 02/16/18 01:07 Dose: 650 mg Aspirin (Ecotrin) 81 mg PO DAILY [facility] Last Admin: 02/16/18 08:19 Dose: 81 mg Atorvastatin Calcium (Lipitor) 20 mg PO DAILY [facility] Last Admin: 02/16/18 08:20 Dose: 20 mg Bisacodyl (Dulcolax) 10 mg [place] DAILYPRN PRN PRN Reason: Constipation Clopidogrel Bisulfate (Plavix) 75 mg PO DAILY [facility] Last Admin: 02/16/18 08:20 Dose: 75 mg Cyclobenzaprine HCl (Flexeril) 5 mg PO TIDPRN PRN PRN Reason: Muscle Spasm Last Admin: 02/16/18 00:39 Dose: 5 mg Heparin Sodium (Porcine) (Heparin) 5,000 units SC BID [facility] Last Admin: 02/16/18 21:10 Dose: 5,000 units Hydralazine HCl (Apresoline) 10 mg SLOW IVP Q4H PRN PRN Reason: SBP Greater Than 180 Hydralazine HCl (Apresoline) 25 mg PO BID-[facility] Last Admin: 02/16/18 17:06 Dose: 25 mg Magnesium Hydroxide (Milk Of Magnesium) 30 ml PO DAILYPRN PRN PRN Reason: Constipation Melatonin (Melatonin) 3 mg PO HSPRN PRN PRN Reason: Insomnia Last Admin: 02/16/18 02:47 Dose: 3 mg Metoprolol Tartrate (Lopressor) 25 mg PO BID [facility] Last Admin: 02/16/18 21:10 Dose: 25 mg Miscellaneous Medication (Pharmacy To Dose) 1 each IVPB PRN PRN PRN Reason: Pharmacy to dose Miscellaneous Medication (Phos-Nak) 1 pkt PO TID-[facility] Last Admin: 02/16/18 17:06 Dose: 1 pkt Olmesartan (Benicar) 20 mg PO BID [facility] Last Admin: 02/16/18 21:10 Dose: 20 mg Ondansetron HCl (Zofran Odt) 4 mg SL Q6H PRN PRN Reason: Nausea/Vomiting Last Admin: 02/14/18 18:57 Dose: 4 mg Sodium Chloride (Flush - Normal Saline) 10 ml IVF Q12HR [facility] Last Admin: 02/16/18 21:10 Dose: 10 ml Sodium Chloride (Flush - Normal Saline) 10 ml IVF PRN PRN PRN Reason: Saline Flush Tolvaptan (Samsca) 15 mg PO DAILY [facility] Last Admin: 02/16/18 08:19 Dose: 15 mg
[2018-02-17] MEDS: hydrALAZINE 25 MG TAB PO SCH (08:44)
[2018-02-17] MEDS: Clopidogrel Bisulfate 75 MG TAB PO SCH (08:45)
[2018-02-17] MEDS: Heparin 5,000 UNITS/ML VIAL SC SCH (08:45)
[2018-02-17] MEDS: Aspirin 81 mg Enteric Coated Tablet PO SCH (08:45)
[2018-02-17] MEDS: Metoprolol Tartrate 25 MG TAB PO SCH (08:45)
[2018-02-17] MEDS: Tolvaptan 15 MG TAB PO SCH (08:46)
[2018-02-17] MEDS: Atorvastatin Calcium 20 MG TAB PO SCH (09:48)
[2018-02-17 09:49] LABS: Sodium 133 mmol/L (136-145)
[2018-02-17 11:24] VITALS: BP 133/63; TEMP 97.5
--- NOTE | 2018-02-17 15:28 | DIS ---
DATE OF ADMISSION: 02/10/2018 DATE OF DISCHARGE: 02/17/2018 DISCHARGE DIAGNOSES: 1. Syndrome of inappropriate antidiuretic hormone secretion. 2. Toxic metabolic encephalopathy. 3. Electrolyte abnormality. 4. Lung mass. 5. Hypertension. 6. Acute respiratory failure with hypoxemia. CONSULTATIONS: Pulmonology, Nephrology and Palliative Care. HOSPITAL COURSE: This is an 87-year-old female with past medical history of breast cancer in [facility], presented to the hospital with chief complaint of shortness of breath. The patient was also foun d to be hyponatremic at that time. The patient was diagnosed with SIADH. The patient went into resp iratory failure during treatment and the patient was admitted to the ICU. In the hospital stay, when the patient went to the ICU, the patient was put on BiPAP. The patient was started on antibiotics. Director Of Accounting saw the patient who decided that antibiotics were not needed and that he did not think that there was evidence of infiltrate. Antibiotics were discontinued. The patient was given Lasix, which helped with the patient's respirations and Pulmonology continued to follow the patient. In te grant of the patient's SIADH, Nephrology followed the patient, gave the patient tolvaptan and the patie nt improved. At this point, the patient is stable and in good condition to be discharged to [facility]. PHYSICAL EXAMINATION: VITAL SIGNS: When the patient came to the floor, the patient's vitals were temperature 97.6, pulse 8 4, respiratory rate of 21, blood pressure was 184/81. LABORATORY DATA: EKG was reviewed that showed normal sinus rhythm with a possible left atrial enlarg ement. CT angio showed no evidence of acute pulmonary embolus. Chest x-ray showed right-sided pneum onia or effusion. The CT angio is important to also note that there was a confluent soft tissue mass , which might be related to malignancy of the mediastinum and right ilium with additional enlargement of mediastinal lymph nodes and this could be related to primary mediastinal malignancy. There were also some right pleural effusions that were seen. CBC; WBC was 7.2, hemoglobin was 14, platelets 171 ,000. Blood gas showed pH of 7.4, pCO2 of 29, pO2 119. Electrolytes, sodium 115, potassium 3. 9, chloride was 85, carbon dioxide of 20, anion gap of 14, BUN of 9, creatinine of 0.71, glucose of 1 17, serum osmolality was 240, BNP was 357. DISCHARGE MEDICATIONS: Kindly refer to the electronic medical records for discharge medications. DISPOSITION: The patient was seen and examined on the day of discharge. The patient was feeling wel l, does not appear to be in any acute distress. The patient was stating that she is feeling much bet ter and happy to go to rehabilitation. This case has been dictated by Dr. Reinier Hirsch on patient Harpreet Waller. The whole discharge encounter lasted for about 32 minutes.
[2018-02-17] MEDS ORDERED: Atorvastatin Calcium 20 MG TAB PO SCH (21:00)
== END 2018-02-17 13:41 | DRG 643 ==
LOC: ERS 16:56 → 2NO 20:26 → IMCU/EMU 02-11 02:48 → 2NO 02-15 16:43
PROVIDERS: ADMIT Hospitalist; ATTEND Hospitalist
PROC: 5A09357 Assistance with Respiratory Ventilation, Less than 24 Consecutive Hours, Continuous Positive Airway Pressure (ICD-10-PCS; principal; 2018-02-11)
DX: E22.2 Syndrome of inappropriate secretion of antidiuretic hormone (principal); J96.01 Acute respiratory failure with hypoxia; G92 Toxic encephalopathy; I50.33 Acute on chronic diastolic (congestive) heart failure; C78.1 Secondary malignant neoplasm of mediastinum; I11.0 Hypertensive heart disease with heart failure; J43.9 Emphysema, unspecified; Z66 Do not resuscitate; E78.5 Hyperlipidemia, unspecified; R73.9 Hyperglycemia, unspecified; E87.6 Hypokalemia; E83.39 Other disorders of phosphorus metabolism; I25.10 Atherosclerotic heart disease of native coronary artery without angina pectoris; I73.9 Peripheral vascular disease, unspecified; Z85.3 Personal history of malignant neoplasm of breast; Z86.718 Personal history of other venous thrombosis and embolism; Z90.11 Acquired absence of right breast and nipple; Z88.5 Allergy status to narcotic agent; Z79.02 Long term (current) use of antithrombotics/antiplatelets; Z79.82 Long term (current) use of aspirin; Z79.899 Other long term (current) drug therapy
CPT/HCPCS: 36415; 36416; 71045; 71046; 71275; 80048; 80053; 80069; 81003; 82436; 82553; 82570; 82805; 83605; 83735; 83880; 83930; 83935; 84100; 84133; 84295; 84300; 84484; 85014; 85018; 85025; 85049; 87040; 90471; 90670; 93005; 93306; 94660; A4216; G0009; G8978-GP-CK; G8979-GP-CI; G8987-GO-CJ; G8988-GO-CI; J0360; J0456; J1644; J1650; J1940; J2001; J2060; J2405; J2543; J3370; J3475; J7050; Q0162

== ENCOUNTER 2018-02-28 16:10 | Inpatient (IN) | payer MEDICARE ==
[2018-02-28 16:34] LABS: Actual Bicarbonate (HCO3a) 22.7 mEq/L (22-28); Base Excess (BEa) 0.5 mEq/L (-2.0 to +3.0); CO2 Tension 29.2 mmHg (35.0-45.0); Carboxyhemoglobin (COHb) 0.5 gm% (0.0-3.0); Hemoglobin (Hb) 12.4 g/dL (12.0-16.0); pH, Arterial 7.51 (7.35-7.45)
[2018-02-28 16:35] LABS: Analyzer IN Cardio ER; Calcium, Ionized 1.12 mmol/L (1.12-1.30); Potassium - ABG Lab 3.5 mmol/L (3.70-5.30); Puncture Site LRA
[2018-02-28 16:54] LABS: Hemoglobin 11.8 g/dL (12.0-16.0); Mean Corpuscular Hemoglobin 28.4 pg (27.0-31.0); Mean Corpuscular Volume 82.9 fL (78.0-98.0); Red Blood Cell (RBC) Count 4.14 mill/uL (4.20-5.40); White Blood Cell (WBC) Count 8.8 thou/uL (4.8-10.8)
[2018-02-28 16:55] LABS: #Lymphocytes 1.2 thou/uL (1.20-3.40); #Monocytes 0.8 thou/uL (0.11-0.59); #Neutrophils 6.7 thou/uL (1.40-6.50); %Basophils 0.2 % (0.0-1.0); %Eosinophils 0.5 % (0.0-10.0); %Lymphocytes 13.5 % (21.0-51.0); %Monocytes 9.4 % (0.0-10.0); %Neutrophils 76.4 % (42.0-75.0); Mean Corpuscular HGB CONC 34.3 g/dL (32.0-36.0); Mean Platelet Volume 7.3 fL (7.4-10.4); Platelet Count 150 thou/uL (130-400); RBC Distribution Width 15.1 % (11.5-14.5)
[2018-02-28] MEDS ORDERED: Furosemide 40 MG/4 ML VIAL ONE (16:58)
[2018-02-28 17:14] LABS: ALT (SGPT) 67 U/L (8-55); AST (SGOT) 71 U/L (5-34); Albumin 3.7 g/dL (3.4-4.8); Alkaline Phosphatase 74 U/L (40-150); Anion Gap 13 mmol/L (10-20); BUN (Urea Nitrogen) 23 mg/dL (9.8-20.1); Bilirubin, Total 0.6 mg/dL (0.2-1.2); CK (CPK) 121 U/L (29-168); Calc. Creatinine Clearance 0 mL/min (70-130); Calcium 8.8 mg/dL (7.8-10.44); Carbon Dioxide 25 mmol/L (23-31); Chloride 103 mmol/L (98-107); Estimated GFR-MDRD 59; Globulin 3.4 g/dL (2.4-3.5); Glucose 132 mg/dL (83-110); Lipase 34 U/L (8-78); Potassium 3.6 mmol/L (3.5-5.1); Protein, Total 7.1 g/dL (6.0-8.3); Sodium 137 mmol/L (136-145)
[2018-02-28 17:18] LABS: CKMB 2.3 ng/mL (0-6.6)
--- NOTE | 2018-02-28 17:19 | RAD ---
RADIOGRAPH CHEST 1 VIEW: Date: 02/28/2018 Time: 4:32 p.m. HISTORY: An 87-year-old female with dyspnea and hypoxemia. COMPARISON: 02/14/2018 FINDINGS: The small to moderate sized right pleural effusion is again demonstrated. There is a new finding of consolidation at the right lung base abutting that pleural effusion. There are mild, patchy infiltra lilly in the left lung base. Again noted is the gaseous distention of a viscus in the upper abdomen, p erhaps a loop of colon or the stomach. No cardiomegaly. Prominent interstitial markings diffusely, chronic. No pneumothorax. IMPRESSION: 1. New bibasilar infiltrates, suspicious for pneumonia. 2. Small to moderate sized right pleural effusion remains. PARI [] POS: CLAIR
[2018-02-28 19:36] LABS: Bilirubin Negative (Negative); Blood, Urine Negative (Negative); Clarity CLOUDY (Clear); Glucose, Urine (Dipstick) Negative (Negative); Leukocyte Trace (Negative); Nitrite Positive (Negative); Protein, Urine (Dipstick) Trace mg/dL (Neg-Trace); Specific Gravity, Urine 1.014 (1.002-1.036); Urobilinogen 0.2 mg/dL (0.2-1.0); pH, Urine 5.5 (5.0-9.0)
[2018-02-28 19:39] LABS: Bacteria/HPF 2+ HPF (None Seen); Hyaline Casts/LPF 4-6 HYALINE CAST LPF (0-3 Hyaline); Pathc Cast-AUWi Flag 0.29 (0-2.49); RBC/HPF 0-3 HPF (0-3); Squamous Epithelial 0-3 HPF (0-3)
[2018-02-28] MEDS ORDERED: Ondansetron HCl/PF 4 MG/2 ML Vial IVP PRN ×2 (19:45→19:47)
[2018-02-28] MEDS ORDERED: Ondansetron ODT 4 MG TAB SL PRN (19:45)
[2018-02-28] MEDS ORDERED: Ondansetron ODT 4 MG TAB PO PRN (19:47)
[2018-02-28] MEDS ORDERED: HYDROcodone/Acetaminophen 5/325 mg Tablet PO PRN (19:47)
[2018-02-28] MEDS ORDERED: Acetaminophen 325 MG TAB PO PRN (19:47)
[2018-02-28] MEDS ORDERED: Enoxaparin Sodium 30 MG/0.3 ML SYRINGE SC SCH (20:00)
[2018-02-28] MEDS ORDERED: Furosemide 40 MG/4 ML VIAL SLOW IVP SCH ×2 (20:00→21:00)
[2018-02-28 20:21] LABS: CKMB 2.5 ng/mL (0-6.6); Troponin I 0.025 ng/mL (< 0.028)
[2018-02-28] MEDS: Famotidine 20 MG TAB PO SCH (20:44)
[2018-02-28] MEDS ORDERED: Aspirin 325 MG TAB PO SCH (21:00)
[2018-02-28 21:29] VITALS: BMI 19.1
[2018-02-28] MEDS: Nitroglycerin 2% Ointment 1 INCH/1 GM Packet TOP SCH (23:02)
[2018-02-28] MEDS: Furosemide 40 MG/4 ML VIAL SLOW IVP SCH (23:04)
[2018-02-28] MEDS ORDERED: Nitroglycerin 2% Ointment 1 INCH/1 GM Packet TOP SCH (23:59)
[2018-03-01 04:34] LABS: #Eosinphils 0.1 thou/uL (0.0-0.7); #Lymphocytes 0.9 thou/uL (1.20-3.40); #Monocytes 0.5 thou/uL (0.11-0.59); #Neutrophils 4.8 thou/uL (1.40-6.50); %Eosinophils 0.8 % (0.0-10.0); %Lymphocytes 13.7 % (21.0-51.0); %Monocytes 8.6 % (0.0-10.0); %Neutrophils 76.9 % (42.0-75.0); Hemoglobin 10.1 g/dL (12.0-16.0); Mean Corpuscular HGB CONC 33.4 g/dL (32.0-36.0); Mean Corpuscular Hemoglobin 27.5 pg (27.0-31.0); Mean Corpuscular Volume 82.3 fL (78.0-98.0); Mean Platelet Volume 7.7 fL (7.4-10.4); Platelet Count 130 thou/uL (130-400); Red Blood Cell (RBC) Count 3.68 mill/uL (4.20-5.40); White Blood Cell (WBC) Count 6.3 thou/uL (4.8-10.8)
[2018-03-01 04:55] LABS: Anion Gap 14 mmol/L (10-20); BUN (Urea Nitrogen) 23 mg/dL (9.8-20.1); Calc. Creatinine Clearance 37 mL/min (70-130); Calcium 8.5 mg/dL (7.8-10.44); Carbon Dioxide 24 mmol/L (23-31); Chloride 103 mmol/L (98-107); Estimated GFR-MDRD 59; Glucose 110 mg/dL (83-110); Magnesium 1.8 mg/dL (1.6-2.6); Sodium 138 mmol/L (136-145)
[2018-03-01 04:57] LABS: Troponin I 0.019 ng/mL (< 0.028)
[2018-03-01 05:04] LABS: Potassium 2.9 mmol/L (3.5-5.1)
[2018-03-01] MEDS ORDERED: Potassium Chloride 20 MEQ TAB PO SCH (05:15)
[2018-03-01] MEDS: Furosemide 40 MG/4 ML VIAL SLOW IVP SCH ×2 (05:58→12:25)
[2018-03-01] MEDS: Nitroglycerin 2% Ointment 1 INCH/1 GM Packet TOP SCH ×3 (05:59→21:11)
[2018-03-01] MEDS: Metoprolol Tartrate 50 MG TAB PO SCH ×2 (08:56→16:45)
[2018-03-01] MEDS: hydrALAZINE 25 MG TAB PO SCH ×2 (08:56→16:44)
[2018-03-01] MEDS: Amlodipine 5 MG TAB PO SCH (08:57)
[2018-03-01] MEDS: Atorvastatin Calcium 20 MG TAB PO SCH (08:57)
[2018-03-01] MEDS: Clopidogrel Bisulfate 75 MG TAB PO SCH (08:57)
[2018-03-01] MEDS: Aspirin 81 mg Enteric Coated Tablet PO SCH (08:57)
[2018-03-01] MEDS: Famotidine 20 MG TAB PO SCH (08:58)
[2018-03-01] MEDS ORDERED: Prevnar 13-Val Conj/PF 0.5 ML SYRINGE IM ONE (09:00)
[2018-03-01] MEDS: ALPRAZolam 0.25 MG TAB PO PRN ×2 (12:54→18:21)
[2018-03-01] MEDS ORDERED: Magnesium Sulfate 4 GM in Sodium Chloride 0.9% 250 ML 250 ML IVPB SCH (15:45)
[2018-03-01] MEDS: Potassium Chloride 20 MEQ TAB PO SCH ×2 (16:20→20:26)
--- NOTE | 2018-03-01 22:17 | CON ---
DATE OF SERVICE: 03/01/2018 SERVICE: Pulmonary Medicine. REASON FOR CONSULTATION: ICU patient. HISTORY OF PRESENT ILLNESS: The patient is an 87-year-old white female who is well known to me. She was recently in the hospital for acute on chronic diastolic heart failure. Her breathing was back to normal on discharge from the hospital. Ultimately, she was discharged to the rehabilitation facility. She had progressive increasing swelling in the bilateral lower extremities. She had increasing dyspnea. As such, she returned to the emergency department. I reviewed the records from the recent discharge. She did not go out on any doses of Lasix p.r.n. or scheduled. She is coughing and having a little bit of clear sputum production. That being said, there is nothing in color to it. She does not feel like she has pneumonia. She denies having any night sweats, or fevers. She is not coughing up anything of color. She responded very simply to a little bit of noninvasive positive pressure ventilation. She breathes comfortably while she is on it. Within 30 minutes of taking her off, however, she had increase of work of breathing once again this morning. As such , we will continue to make efforts at weaning through time. Otherwise, there were no significant overnight events. She denies having any chest discomfort or palpitations. PAST MEDICAL HISTORY: 1. Dyslipidemia. 2. Hypertension. 3. Coronary artery disease. 4. Chronic diastolic heart failure. 5. History of breast cancer. 6. History of DVT. PAST SURGICAL HISTORY: 1. Right mastectomy. 2. Right hip surgery. SOCIAL HISTORY: Negative for alcohol, tobacco or illicit drug use. She has no exposure to chemicals, dust, asbestos or tuberculosis. FAMILY HISTORY: Noncontributory. ALLERGIES: ATIVAN and DEMEROL. MEDICATIONS: List of inpatient medications were reviewed. Agree with diuretics and withholding antibiotics at this time. REVIEW OF SYSTEMS: General, head, ears, eyes, nose, throat, cardiovascular, respiratory, GI, , musculoskeletal, neurologic and skin is negative except as mentioned in the HPI. PHYSICAL EXAMINATION: VITAL SIGNS: Afebrile, pulse 95, blood pressure 136/52, respirations 20, saturation 90% on BiPAP with 23% FiO2 and a PEEP of 5. HEENT: Normocephalic, atraumatic. Sclerae are white, conjunctivae pink. Oral mucosa is moist without lesions. LUNGS: Decent air entry on the left. The right has decreased air entry at the base. Crackles are present bilaterally. There is a prolonged expiratory phase , but I do not appreciate an overt wheezing. HEART: Normal rate, regular. ABDOMEN: Soft, nontender, nondistended. Bowel sounds are positive. MUSCULOSKELETAL: No cyanosis or clubbing. There is diffuse 2+ pitting throughout. GENITOURINARY: Wade catheter in place. NEUROLOGIC: Grossly nonfocal. LABORATORY DATA: WBC 6.3, hemoglobin 10.1, platelets 130,000. pH 7.51, pCO2 of 29, pO2 94. This was on BiPAP at that time. Potassium 2.9. Basic metabolic profile is otherwise unremarkable. Magnesium 1.8. Cardiac enzymes are negative x3. BNP is 1200, which is high. AST and ALT are marginally elevated. Urinalysis is positive for nitrites, but there is no significant pyuria present. Urine bacteria is present 2+. Blood cultures x2 are unremarkable. IMAGING: Chest x-ray demonstrates findings consistent with volume overload including small effusion on the right, and interstitial fullness. This is superimposed on a background of emphysematous changes. It gives the appearance of fibrotic lung disease, but does not present based on the recent CT of the chest. ASSESSMENT: 1. Acute hypoxic respiratory failure. 2. Acute on chronic diastolic heart failure. 3. Pleural effusion, which has waxed and waned with diuretics. 4. Emphysema based on CT findings. 5. History of breast cancer. 6. Likely metastatic breast disease characterized by mediastinal lymphadenopathy, soft tissue lung mass, liver lesions, and adrenal lesion. PLAN: The patient has declined evaluation of the lung lesion because it will be technically very challenging to get a sample of it. Furthermore, she was not interested in pursuing biopsies of the liver lesion or the adrenal lesion. My presumption, this represents a widely metastatic process. Palliative care consultation will be placed. I will replace the potassium and magnesium today and we will recheck some values tomorrow morning. I will continue to diurese the patient until she arrives euvolemia, but we will back off to once daily dosing for the time being. BiPAP will be weaned away as tolerated. On discharge from the hospital this time around, she will likely benefit from a generous dose of Lasix on an as needed to daily basis. 70 minutes have been devoted to this patient in various activities. I personally reviewed all imaging studies and laboratory data noted within this document. For fifty percent of this time, I was interacting with the patient at the bedside or coordinating care with the care team. For the remainder of the time I was immediately available to the patient in the hospital unit. NOHEMI
[2018-03-02 03:56] LABS: Anion Gap 11 mmol/L (10-20); BUN (Urea Nitrogen) 21 mg/dL (9.8-20.1); Calc. Creatinine Clearance 35 mL/min (70-130); Calcium 8.4 mg/dL (7.8-10.44); Carbon Dioxide 28 mmol/L (23-31); Chloride 104 mmol/L (98-107); Estimated GFR-MDRD 56; Glucose 102 mg/dL (83-110); Potassium 4.3 mmol/L (3.5-5.1); Sodium 139 mmol/L (136-145)
[2018-03-02 03:59] LABS: Phosphorus 1.3 mg/dL (2.3-4.7)
[2018-03-02] MEDS: Nitroglycerin 2% Ointment 1 INCH/1 GM Packet TOP SCH (06:05)
[2018-03-02] MEDS: Furosemide 40 MG/4 ML VIAL SLOW IVP SCH (09:59)
[2018-03-02] MEDS: Clopidogrel Bisulfate 75 MG TAB PO SCH (09:59)
[2018-03-02] MEDS: Metoprolol Tartrate 50 MG TAB PO SCH ×2 (09:59→17:55)
[2018-03-02] MEDS: Famotidine 20 MG TAB PO SCH (09:59)
[2018-03-02] MEDS: Atorvastatin Calcium 20 MG TAB PO SCH (10:00)
[2018-03-02] MEDS: Aspirin 81 mg Enteric Coated Tablet PO SCH (10:00)
[2018-03-02] MEDS: Amlodipine 5 MG TAB PO SCH (10:00)
[2018-03-02] MEDS: hydrALAZINE 25 MG TAB PO SCH ×2 (10:00→17:54)
--- NOTE | 2018-03-02 13:24 | PRG ---
DATE OF SERVICE: 03/02/2018 SERVICE: Pulmonary Medicine. INTERVAL HISTORY: The patient is doing better from a respiratory standpoint. She remains on a nitro patch. She is on multiple blood pressure medications that are currently due. She is being diuresed through time. With this, she is tolerating longer breaks off her BiPAP. There has been no interval change to her condition, however. There were no events overnight otherwise. PHYSICAL EXAMINATION: VITAL SIGNS: Afebrile, pulse 89, blood pressure 151/71, respirations 22, saturation 90% on 4 liters nasal cannula. GENERAL: The patient is awake and alert, in no apparent distress. LUNGS: Decreased air entry with a prolonged expiratory phase. Crackles are still present. They are much improved, however. No rhonchi or wheezing appreciated. HEART: Normal rate and regular. ABDOMEN: Soft, nontender, nondistended. Bowel sounds are positive. MUSCULOSKELETAL: No cyanosis or clubbing. There is trace to 1+ pitting in the bilateral lower extre mities. NEUROLOGIC: Grossly nonfocal. LABORATORY DATA: Phosphorus 1.3, magnesium 3.0. Basic metabolic profile is otherwise unremarkable. Creatinine is normal at 0.95. Bicarbonate is also normal. ASSESSMENT: 1. Acute hypoxic respiratory failure. 2. Acute on chronic diastolic heart failure. 3. Pleural effusion, which has waxed and waned with diuretics. 4. Emphysema, based on CT findings without acute exacerbation of chronic obstructive pulmonary disea se. 5. History of breast cancer. 6. Mediastinal lymphadenopathy, soft tissue mass, liver lesions and adrenal lesion, the patient has declined investigation. DISCUSSION AND PLAN: We will continue to diurese until she returns to euvolemia. Palliative care co nsultation has been placed. Nitropatch will be discontinued today. We will continue to give her BiP AP breaks through the day. If she remains off BiPAP through tomorrow, she can be considered for arreola sition to the floor. Pulmonary Critical Care will continue to follow in this location.
[2018-03-02] MEDS ORDERED: Sodium Phosphate 30 MMOL, Admixture Fee 1 EACH in Sodium Chloride 0.9% 500 ML IVPB SCH (13:30)
--- NOTE | 2018-03-02 18:10 | CON ---
DATE OF CONSULTATION: 03/02/2018 REASON FOR CONSULTATION: Diastolic heart failure. HISTORY OF PRESENT ILLNESS: Ms. Mullins is a pleasant 87-year-old woman who has a previous history o f severe CAD and turndown bypass surgery 4 years ago while in [place], who recently presented with ac [place] heart failure. This is her second admission. She has also had hyponatremia. She continues to h ave a significant shortness of breath, fatigue, and weakness. She was also subsequently found to hav e what appeared to be metastatic disease to the liver and sternum. She has a previous history of tom ast cancer. No chest pain or pressure noted. Most recent echo dated 02/11/2018 with LVEF 55% to 60% with diastolic dysfunction. Moderate MR present. PAST MEDICAL HISTORY: Hyperlipidemia, hypertension, DVT, breast cancer, right mastectomy. SOCIAL HISTORY: No current tobacco or alcohol use. Her only daughter at the age of 45. She has three grandchildren, who are very supportive. FAMILY HISTORY: Negative for CAD. ALLERGIES: DEMEROL. MEDICATIONS: Metoprolol, Plavix, amlodipine, atorvastatin, and hydralazine. REVIEW OF SYSTEMS: A 10-point review of systems reviewed and as above, otherwise negative. PHYSICAL EXAMINATION: GENERAL: Patient is a pleasant female who is in no acute distress. The patient appears her stated a ge. VITAL SIGNS: Blood pressure 142/71, pulse 76, temperature 98.5. NEUROLOGIC: The patient is alert and oriented times 3 with no focal neurologic deficits. HEENT: Sclerae without icterus. Mouth has moist mucous membranes with normal pallor. NECK: No JVD. Carotid upstroke brisk. No bruits bilaterally. LUNGS: Crackles noted at bases bilaterally. BACK: No scoliosis or kyphosis. CARDIAC: Regular rate and rhythm with normal S1 and S2. No S3 or S4 noted. No significant rubs, mu rmurs, thrills, or gallops noted throughout the precordium. PMI is not displaced. There is no earline ternal heave. ABDOMEN: Soft, nontender, nondistended. No peritoneal signs present. No hepatosplenomegaly. No ab normal striae. EXTREMITIES: 2+ femoral and 2+ dorsalis pedis pulses. No cyanosis, clubbing, or edema. SKIN: No gross abnormalities. PERTINENT LABORATORY DATA: Hemoglobin 10.1. Potassium 4.3, sodium 139, previous sodium of 115 dated 02/10/2018. IMPRESSION: 1. Acute diastolic heart failure. 2. Syndrome of inappropriate antidiuretic hormone secretion. 3. ? metastatic cancer. 4. Severe coronary artery disease. RECOMMENDATIONS: Several options were discussed with Ms. Mullins and her son. At this point, I woul d recommend conservative therapy. Given her age and comorbidities in addition to likely metastatic c ancer, would not benefit from a more aggressive approach. They agreed. It is also difficult to lorraine t aggressively with Lasix for heart failure given as 87 and a recent sodium of 115. We will have to be careful with diuresis. We did discuss palliative care. They are agreeable to palliative care. Ning ramirez would like to have her receive some type of physical therapy. From a Cardiology standpoint, I lechuga ve no further recommendations.
[2018-03-03 05:00] LABS: Anion Gap 12 mmol/L (10-20); BUN (Urea Nitrogen) 24 mg/dL (9.8-20.1); Calc. Creatinine Clearance 36 mL/min (70-130); Calcium 8.2 mg/dL (7.8-10.44); Carbon Dioxide 27 mmol/L (23-31); Chloride 102 mmol/L (98-107); Estimated GFR-MDRD 58; Glucose 99 mg/dL (83-110); Phosphorus 3.5 mg/dL (2.3-4.7); Potassium 3.4 mmol/L (3.5-5.1); Sodium 138 mmol/L (136-145)
[2018-03-03] MEDS: Potassium Chloride 20 MEQ TAB PO SCH ×2 (08:58→13:16)
[2018-03-03] MEDS: hydrALAZINE 25 MG TAB PO SCH ×2 (08:58→17:15)
[2018-03-03] MEDS: Atorvastatin Calcium 20 MG TAB PO SCH (08:59)
[2018-03-03] MEDS: Amlodipine 5 MG TAB PO SCH (08:59)
[2018-03-03] MEDS: Famotidine 20 MG TAB PO SCH (08:59)
[2018-03-03] MEDS: Clopidogrel Bisulfate 75 MG TAB PO SCH (08:59)
[2018-03-03] MEDS: Aspirin 81 mg Enteric Coated Tablet PO SCH (09:00)
[2018-03-03] MEDS: Furosemide 40 MG/4 ML VIAL SLOW IVP SCH (09:00)
[2018-03-03] MEDS: Metoprolol Tartrate 50 MG TAB PO SCH ×2 (09:00→17:15)
--- NOTE | 2018-03-03 16:19 | PRG ---
DATE OF SERVICE: 03/03/2018 SERVICE: Pulmonary Medicine. INTERVAL HISTORY: The patient is doing really well from a respiratory standpoint. She is able to to lerate longer BiPAP breaks. She did not feel like she necessarily needed the BiPAP last night, but i t was put back on her. Otherwise, there has been no interval change to her condition. She denies an y chest pain. She is yet to be really too terribly active. PHYSICAL EXAMINATION: VITAL SIGNS: Afebrile, pulse 80, blood pressure 139/51, respirations 22, saturation 93% on 4 liters nasal cannula. GENERAL: The patient is awake and alert, in no apparent distress. LUNGS: Decent air entry. Dependent crackles are much improved. HEART: Normal rate, regular. ABDOMEN: Soft, nontender, nondistended. Bowel sounds are positive. MUSCULOSKELETAL: No cyanosis or clubbing. There is no pitting in the bilateral lower extremities. NEUROLOGIC: Grossly nonfocal. LABORATORY DATA: Potassium 3.4. Basic metabolic profile and phosphorus are otherwise unremarkable. ASSESSMENT: 1. Acute hypoxic respiratory failure. 2. Acute on chronic diastolic heart failure. 3. Pleural effusion, which has waxed and waned with diuretics. 4. Emphysema, based on CT findings without history of exacerbations. 5. History of breast cancer. 6. Abnormal findings on CT scan including lymphadenopathy, soft tissue masses and liver lesion/adren al lesion. DISCUSSION AND PLAN: I had a conversation with her grandson and medical [id number]. Ultimate ly, he would like to pursue physical therapy in the outpatient setting. If things get worse and not better, he is thinking about transitioning over to comfort care/hospice care. I do think this is jimbo sonable looking at her trajectory over the last 6 months. We will try to give her BiPAP break this e vening. If she goes the entire night without BiPAP and looks fairly good tomorrow morning, we can co nsider transitioning her back to a care facility or out of the [facility].
[2018-03-04] MEDS: ALPRAZolam 0.25 MG TAB PO PRN (00:27)
[2018-03-04 04:15] LABS: Anion Gap 13 mmol/L (10-20); BUN (Urea Nitrogen) 26 mg/dL (9.8-20.1); Calc. Creatinine Clearance 34 mL/min (70-130); Calcium 8.7 mg/dL (7.8-10.44); Carbon Dioxide 24 mmol/L (23-31); Chloride 105 mmol/L (98-107); Estimated GFR-MDRD 54; Glucose 100 mg/dL (83-110); Magnesium 2.4 mg/dL (1.6-2.6); Sodium 138 mmol/L (136-145)
[2018-03-04] MEDS: Aspirin 81 mg Enteric Coated Tablet PO SCH (09:05)
[2018-03-04] MEDS: hydrALAZINE 25 MG TAB PO SCH ×2 (09:05→16:55)
[2018-03-04] MEDS: Clopidogrel Bisulfate 75 MG TAB PO SCH (09:05)
[2018-03-04] MEDS: Atorvastatin Calcium 20 MG TAB PO SCH (09:05)
[2018-03-04] MEDS: Amlodipine 5 MG TAB PO SCH (09:06)
[2018-03-04] MEDS: Metoprolol Tartrate 50 MG TAB PO SCH ×2 (09:06→16:55)
[2018-03-04] MEDS: Famotidine 20 MG TAB PO SCH (09:06)
[2018-03-04] MEDS: Furosemide 40 MG/4 ML VIAL SLOW IVP SCH (09:07)
--- NOTE | 2018-03-04 12:44 | PRG ---
DATE OF SERVICE: 03/04/2018 SERVICE: Pulmonary Medicine INTERVAL HISTORY: The patient is doing really well from a respiratory standpoint. She did not require the BiPAP too much overnight. She never felt short of breath and this morning, she indicates her breathing is actually much improved. She denies any current fevers, chills, shortness of breath, nausea or vomiting. She is not coughing up any sputum. PHYSICAL EXAMINATION: VITAL SIGNS: Afebrile, pulse 96, blood pressure 142/65, respirations 19, saturation 93% on 4 liters nasal cannula. GENERAL: The patient is awake and alert, in no apparent distress. LUNGS: Decent air entry. There is no prolonged expiratory phase, wheezing, rhonchi, or crackles present. HEART: Normal rate, regular. ABDOMEN: Soft, nontender, nondistended. Bowel sounds are positive. MUSCULOSKELETAL: No cyanosis or clubbing. There is trace pitting in the bilateral lower extremities. NEUROLOGIC: Grossly nonfocal. LABORATORY DATA: Basic metabolic profile is completely unremarkable. BUN 26, bicarb is 24. Basic metabolic profile is otherwise unremarkable. Magnesium 2.4. ASSESSMENT: 1. Acute hypoxic respiratory failure, resolving. 2. Acute on chronic diastolic heart failure. 3. Pleural effusion which has waxed and waned with diuretics. 4. Emphysema, based on CT findings without history of exacerbations. 5. History of breast cancer. 6. Abnormal finding on CT scan including, liver lesions, adrenal lesions, soft tissue mass in the left lung, and mediastinal lymphadenopathy. DISCUSSION AND PLAN: The patient is doing fine from a respiratory standpoint. I am going to discontinue the BiPAP. We will transition her to the medical unit. Pulmonary Critical Care will continue to follow along for the time being. Dr. Chan will see once over the weekend. If she gets into trouble from a respiratory standpoint and the family wants us to be aggressive, please give us a call. NOHEMI
--- NOTE | 2018-03-04 15:27 | PDOC.PN ---
- Subjective Encounter Start Date: 03/04/18 Encounter Start Time: 09:10 Pt feels about the same, some BiPAP overnight, abotu to get up with PT. O2 levels good, some trouble picking up on the finger monitor. No F/c,no CP or SOB, no N/V, no D/C All system reviewed and neg except as per HPI Son leaning towards home with HHC and Palliative care with [facility]. appreciate pulmonary and cardiology recs - Objective Resuscitation Status: Resuscitation Status DNR:Do Not Resuscitate MAR Reviewed: Yes Vital Signs & Weight: Vital Signs (12 hours) Temp Pulse Resp BP Pulse Ox 03/04/18 15:15 76 12 03/04/18 11:39 98.5 F 96 19 142/65 H 93 L 03/04/18 09:19 98 03/04/18 09:15 96 12 03/04/18 08:00 97.5 F L 90 24 H 03/04/18 07:29 97.5 F L 90 24 H 171/65 H 99 03/04/18 04:00 98.5 F 83 18 141/57 H 92 L Weight Weight 109 lb 12.8 oz I&O: 03/03/18 03/04/18 03/05/18 06:59 06:59 06:59 Intake Total 1132 1524 Output Total 701 400 300 Balance 431 1124 -300 Result Diagrams: 03/01/18 03:43 03/04/18 03:28 Phys Exam - Physical Examination Constitutional: NAD HEENT: PERRLA, moist MMs, sclera anicteric, oral pharynx no lesions Neck: no nodes, no JVD, supple, full ROM Respiratory: no wheezing, no rhonchi bibasilar crackles stable Cardiovascular: RRR, no significant murmur, no rub Gastrointestinal: soft, non-tender, no distention, positive bowel sounds Musculoskeletal: edema present markedly improved Neurological: non-focal, normal sensation, moves all 4 limbs Lymphatic: no nodes Psychiatric: normal affect, A&O x 3 Skin: no rash, normal turgor, cap refill <2 seconds Dx/Plan (1) Acute on chronic diastolic CHF (congestive heart failure) Code(s): I50.33 - ACUTE ON CHRONIC DIASTOLIC (CONGESTIVE) HEART FAILURE Status : Acute (2) Acute on chronic respiratory failure with hypoxemia Code(s): J96.21 - ACUTE AND CHRONIC RESPIRATORY FAILURE WITH HYPOXIA Status: Acute (3) Physical deconditioning Code(s): R53.81 - OTHER MALAISE Status: Chronic (4) Hypokalemia Code(s): E87.6 - HYPOKALEMIA Status: Acute Comment: Secondary to GI loss, resolving (5) Lung mass Code(s): R91.8 - OTHER NONSPECIFIC ABNORMAL FINDING OF LUNG FIELD Status: Chronic Comment: Per Pulm. nothing to be done. (6) SIADH (syndrome of inappropriate ADH production) Status: Chronic Comment: Sodium is stable. Will monitor. - Plan cont current plan of care, plan discussed w/ family, PT/OT, home health care social worker, out of bed/ambulate * .
[2018-03-05] MEDS: Furosemide 40 MG TAB PO SCH (08:05)
[2018-03-05] MEDS: Atorvastatin Calcium 20 MG TAB PO SCH (08:05)
[2018-03-05] MEDS: Amlodipine 5 MG TAB PO SCH (08:07)
[2018-03-05] MEDS: Aspirin 81 mg Enteric Coated Tablet PO SCH (08:07)
[2018-03-05] MEDS: hydrALAZINE 25 MG TAB PO SCH ×2 (08:08→16:29)
[2018-03-05] MEDS: Famotidine 20 MG TAB PO SCH (08:08)
[2018-03-05] MEDS: Metoprolol Tartrate 50 MG TAB PO SCH ×2 (08:08→16:30)
[2018-03-05] MEDS: Clopidogrel Bisulfate 75 MG TAB PO SCH (08:09)
--- NOTE | 2018-03-05 11:34 | PRG ---
DATE OF SERVICE: 03/05/2018 SUBJECTIVE: Ms. Mullins is pleasant. She seems to feel fine this morning. She had no specific comp laints. PHYSICAL EXAMINATION: VITAL SIGNS: On exam, temperature is 97.5, pulse 82, respirations 22, O2 sat 91% on 4 liters, blood pressure 118/48. HEENT: Unremarkable. NECK: No JVD. LUNGS: Clear, but distant breath sounds. CARDIAC: S1 and S2, regular. ABDOMEN: Soft and nontender. EXTREMITIES: No edema. ASSESSMENT: 1. Acute hypoxic respiratory failure, which is better. 2. Acute on chronic diastolic heart failure. 3. Pleural effusions, which changed with diuretics. 4. Emphysema. 5. History of breast cancer. 6. Soft tissue mass in the left lung, liver lesions, and adrenal lesions. PLAN: Continuing generalized supportive care. Given that she is on high-dose diuretics, we will emeterio ck chemistry for tomorrow.
[2018-03-06 05:37] LABS: Anion Gap 14 mmol/L (10-20); BUN (Urea Nitrogen) 35 mg/dL (9.8-20.1); Calc. Creatinine Clearance 27 mL/min (70-130); Calcium 8.8 mg/dL (7.8-10.44); Carbon Dioxide 25 mmol/L (23-31); Chloride 103 mmol/L (98-107); Estimated GFR-MDRD 46; Glucose 94 mg/dL (83-110); Potassium 3.5 mmol/L (3.5-5.1); Sodium 138 mmol/L (136-145)
[2018-03-06] MEDS: Famotidine 20 MG TAB PO SCH (08:28)
[2018-03-06] MEDS: Amlodipine 5 MG TAB PO SCH (08:28)
[2018-03-06] MEDS: Furosemide 40 MG TAB PO SCH (08:28)
[2018-03-06] MEDS: Metoprolol Tartrate 50 MG TAB PO SCH ×2 (08:29→16:32)
[2018-03-06] MEDS: hydrALAZINE 25 MG TAB PO SCH ×2 (08:29→16:31)
[2018-03-06] MEDS: Atorvastatin Calcium 20 MG TAB PO SCH (08:29)
[2018-03-06] MEDS: Clopidogrel Bisulfate 75 MG TAB PO SCH (08:29)
[2018-03-06] MEDS: Aspirin 81 mg Enteric Coated Tablet PO SCH (08:30)
--- NOTE | 2018-03-06 11:54 | PRG ---
DATE OF SERVICE: 03/06/2018 SUBJECTIVE: The patient looks comfortable, no complaints. OBJECTIVE: VITAL SIGNS: On exam, temperature is 97.7, pulse 103, respirations 24, O2 sat 93% on 4 liters. HEENT: Unremarkable. NECK: No JVD. LUNGS: A few crackles in the bases. CARDIAC: S1 and S2, regular. ABDOMEN: Soft. EXTREMITIES: No edema. ASSESSMENT: 1. Acute hypoxic respiratory failure. 2. Acute on chronic diastolic heart failure. 3. Pleural effusions. 4. Emphysema. 5. History of breast cancer. 6. Soft tissue mass in the lung, liver, and adrenals. PLAN: She is apparently entering hospice care next week. She is getting low dose Xanax as needed fo r anxiety, but I do not think she is asking for it. Her Lasix dose has been decreased.
[2018-03-07 07:13] VITALS: BP 145/65; TEMP 97.1
[2018-03-07] MEDS ORDERED: Furosemide 40 MG TAB PO SCH (07:30)
[2018-03-07] MEDS: Metoprolol Tartrate 50 MG TAB PO SCH ×2 (08:07→17:24)
[2018-03-07] MEDS: Atorvastatin Calcium 20 MG TAB PO SCH (08:07)
[2018-03-07] MEDS: Famotidine 20 MG TAB PO SCH (08:07)
[2018-03-07] MEDS: hydrALAZINE 25 MG TAB PO SCH ×2 (08:07→17:24)
[2018-03-07] MEDS: Aspirin 81 mg Enteric Coated Tablet PO SCH (08:07)
[2018-03-07] MEDS: Amlodipine 5 MG TAB PO SCH (08:07)
[2018-03-07] MEDS: Clopidogrel Bisulfate 75 MG TAB PO SCH (08:07)
--- NOTE | 2018-03-07 10:48 | PRG ---
DATE OF SERVICE: 03/07/2018 SERVICE: Pulmonary Medicine. INTERVAL HISTORY: The patient is doing great from a respiratory standpoint. Denies any current chest pain, nausea, vomiting. She was able to walk about 100 yards with physical therapy. It caused her to be quite winded. She is sitting down and recovering right now. Her saturations are bouncing right back. She has no specific complaints otherwise. PHYSICAL EXAMINATION: VITAL SIGNS: Afebrile, pulse 96, blood pressure 145/65, respirations 18, and saturation 90% on 3 liters nasal cannula. GENERAL: The patient is awake, alert, in no apparent distress. LUNGS: Decent air entry. Dependent crackles are present, particularly on the right. HEART: Normal rate, regular. ABDOMEN: Soft, nontender, nondistended. Bowel sounds are positive. MUSCULOSKELETAL: No cyanosis or clubbing. There is no pitting in the bilateral lower extremities. NEUROLOGIC: Grossly nonfocal. LABORATORY DATA: Potassium 3.5, creatinine 1.1. Otherwise, basic metabolic profile is unremarkable. ASSESSMENT: 1. Acute hypoxic respiratory failure, improving. 2. Acute on chronic diastolic heart failure. 3. Pleural effusion, which has waxed and waned with diuretics. 4. Emphysema, based on CT findings without history of exacerbation. 5. History of breast cancer. 6. Abnormal finding on CT scan including liver lesions, adrenal lesion, and a soft tissue mass in the right lung with mediastinal lymphadenopathy. DISCUSSION AND PLAN: The patient is doing fine from a respiratory standpoint. We will continue to diurese her gently through time. I will repeat laboratories in the morning. From my perspective, she is stable for transition back to her [facility]-Way Unit. Hospice is being planned in that setting. NOHEMI
--- NOTE | 2018-03-08 01:24 | DIS ---
DATE OF ADMISSION: 02/28/2018 DATE OF DISCHARGE: 03/07/2018 DISCHARGE DIAGNOSES: 1. Right hilar/mediastinal mass with associated adenopathy concerning for malignant process. 2. 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 3. Syndrome of inappropriate antidiuretic hormone secondary to right hilar/mediastinal mass with ass ociated adenopathy concerning for malignant process. 4. Acute hypoxic respiratory failure requiring BiPAP noninvasive mechanical ventilation. 5. Acute diastolic congestive heart failure exacerbation. 6. Hypokalemia, improved. CONSULTATIONS: Dr. Romano and Dr. Chan with Pulmonology Service. Dr. Sands with Cardiology Service. PERTINENT LABORATORY AND X-RAY FINDINGS: Potassium ranged between 2.9-4.3, creatinine ranged between 0.90-1.11. Estimated GFR ranged between 46-59. Phosphorus ranged between 1.3-3.5. Magnesium level ranged between 1.8-3.0. BNP 1234, previously noted on 02/10/2018, 357. CBC showed a hemoglobin ran ging between 10.1-11.8. Portable chest x-ray dated 02/28/2018 showed bibasilar infiltrates consisten t with pleural effusion. HOSPITAL COURSE: The patient was initially admitted to the ICU after presenting with acute dyspnea w ith associated hypoxemia requiring BiPAP noninvasive mechanical ventilation. The patient's presentat ion is multifactorial including acute diastolic congestive heart failure exacerbation in addition to recent diagnosis of right hilar and mediastinal mass concerning for malignant process. The patient r eceived IV Lasix as well as oxygen support. The patient eventually weaned off BiPAP noninvasive mech anical ventilation with general pulmonary supportive measures, IV Lasix and bronchodilator therapy. The patient decided not to pursue evaluation of the lung mass as stated previously or biopsies of the liver or adrenal gland. General consensus was metastatic process; however, the patient was not wish ing to pursue aggressive workup or intervention. The patient transitioned to palliative measures aft er consultation with the Palliative Care Service. The patient was transferred to the medical floor r eceiving general pulmonary supportive measures and deciding to pursue hospice care at home. I have e xamined the patient at the time of discharge and discussed followup instructions. The patient verbal ized understanding and agreement and ready to discharge home 03/07/2018. DISCHARGE MEDICATIONS: 1. Amlodipine 5 mg one tablet p.o. daily. 2. Enteric coated aspirin 81 mg p.o. daily. 3. Lipitor 20 mg p.o. daily. 4. Biotin 5000 mcg p.o. daily. 5. Plavix 75 mg p.o. daily. 6. Hydralazine 25 mg p.o. b.i.d. 7. Metoprolol tartrate 50 mg p.o. b.i.d. 8. Olmesartan 20 mg p.o. b.i.d. 9. Lasix 40 mg p.o. daily. FOLLOWUP: The patient will follow up with [facility] at home. The patient may follo w up with Dr. John Bosch, her primary care provider. CONDITION ON DISCHARGE: Guarded. ACTIVITY: Ad michael. DIET: Regular. CODE STATUS: Do not resuscitate. DISPOSITION: Home to [facility] with [facility], 03/07/2018.
== END 2018-03-07 18:19 | disposition hospice, inpatient (51) | DRG 291 ==
LOC: ERS 16:10 → IMCU/EMU 17:24 → T4-A 03-04 16:10
PROVIDERS: ADMIT Internal Medicine Infectious Disease; ATTEND Internal Medicine Infectious Disease
PROC: 5A09357 Assistance with Respiratory Ventilation, Less than 24 Consecutive Hours, Continuous Positive Airway Pressure (ICD-10-PCS; principal; 2018-02-28)
DX: I11.0 Hypertensive heart disease with heart failure (principal); J96.01 Acute respiratory failure with hypoxia; C78.00 Secondary malignant neoplasm of unspecified lung; C78.7 Secondary malignant neoplasm of liver and intrahepatic bile duct; C77.1 Secondary and unspecified malignant neoplasm of intrathoracic lymph nodes; C79.70 Secondary malignant neoplasm of unspecified adrenal gland; E22.2 Syndrome of inappropriate secretion of antidiuretic hormone; I50.33 Acute on chronic diastolic (congestive) heart failure; E87.6 Hypokalemia; I25.10 Atherosclerotic heart disease of native coronary artery without angina pectoris; E78.5 Hyperlipidemia, unspecified; J43.9 Emphysema, unspecified; F41.9 Anxiety disorder, unspecified; Z51.5 Encounter for palliative care; Z66 Do not resuscitate; Z85.3 Personal history of malignant neoplasm of breast; Z86.718 Personal history of other venous thrombosis and embolism; Z79.02 Long term (current) use of antithrombotics/antiplatelets
CPT/HCPCS: 36415; 36416; 71045; 80048; 81003; 81015; 82553; 82805; 83690; 83735; 83880; 84100; 84484; 85025; 90471; 90670; 93005; 94660; 96374; A4216; G0009; G8978-GP-CM; G8979-GP-CK; G8987-GO-CL; G8988-GO-CJ; J1650; J1940; J3475; J7050; J7620